=== PATIENT | female | born 1955 | race Caucasian/White ===

== ENCOUNTER 2021-03-05 10:13 | Inpatient (IN) | payer BC ==
[2021-03-05] MEDS ORDERED: 50% Dextrose in Water 50 ML Syringe IVPUSH PRN (14:01)
[2021-03-05] MEDS ORDERED: Glucagon,Human Recombinant 1 MG Vial IM PRN (14:01)
[2021-03-05] MEDS ORDERED: oxyCODONE 5 MG Tab PO PRN (14:01)
--- NOTE | 2021-03-05 14:11 | PCM.HP.2 ---
H&P History of Present Illness - General Date of Service: 03/05/21 Admit Problem/Dx: Admission Diagnosis/Problem Admission Diagnosis/Problem Rehabilitation therapy Source of Information: Patient, Old Records, Provider - History of Present Illness Initial Comments - Free Text/Narative: Akilah underwent Laminectomy on Mar 01, she is POD #4 today. Her hemoglobin was 9.3, had minimal blood loss. Electrolytes were normal per Neurosurgery. She was started on Gabapentin 100 mg tid on 03/01 but has not really helped with pain. She does not want to get hooked on narcotics or Gabapentin so prefers not to be on these for care home. She rates pain as 2/10, prior to surgery was 7-8/10. She denies any fevers, chills, shortness of breath, nausea, vomiting or abdominal pain. She has been voiding and had urinary catheter for 24 hours after surgery then was pulled. She has been passing gas but has not had BM since 02/26. She states gets UTI sometimes but denies any dysuria, frequency or hematuria currently. Neurosurgery pulled drain this morning and had minimal output from it, her surgical site was closed by Dermabond and drain site left open to close by secondary intention. We are to notify them if she has persistent large amounts of drainage from drain site. She is due to see Neurosurgery in 6 weeks. Her restrictions are: no bending, twisting and lifting more than 15 lbs. She does not require any specific DVT prophylaxis per neurosurgery. She eats a regular diet at home and is on Lantus 30 units bid and Metformin bid, checks her sugars tid. - Related Data Allergies/Adverse Reactions: Allergies Allergy/AdvReac Type Severity Reaction Status Date / Time atorvastatin [From Lipitor] Allergy Unknown Rash Verified 03/05/21 14:10 semaglutide AdvReac Unknown Blurred Verified 03/05/21 14:10 Vision Sulfa (Sulfonamide AdvReac Unknown Nausea Verified 03/05/21 14:10 Antibiotics) Home Medications: Home Meds Acetaminophen [Tylenol] 650 mg PO Q6H 03/05/21 [History] Cholecalciferol (Vitamin D3) [Vitamin D3] 25 mcg PO DAILY 03/05/21 [History] Citalopram Hydrobromide [Celexa] 40 mg PO DAILY 03/05/21 [History] Cyanocobalamin (Vitamin B-12) [Vitamin B-12] 1,000 mcg PO DAILY 03/05/21 [History] Docusate Sodium 100 mg PO BID 03/05/21 [History] Gabapentin [Neurontin] 100 mg PO TID 03/05/21 [History] Insulin Glarg,Human.Rec.Analog [Lantus Solostar] 30 units SUBCUT BID 03/05/21 [History] Losartan [Cozaar] 25 mg PO DAILY 03/05/21 [History] Rosuvastatin [Crestor] 10 mg PO BEDTIME 03/05/21 [History] metFORMIN HCl [Metformin HCl] 1,000 mg PO BIDMEALS 03/05/21 [History] oxyCODONE 5 mg PO Q4H PRN 03/05/21 [History] oxyCODONE 10 mg PO Q4H PRN 03/05/21 [History] polyethylene glycoL 3350 [MiraLAX] 17 gm PO DAILY 03/05/21 [History] H&P Review of Systems - Review of Systems: Review Of Systems: Comprehensive ROS is negative, except as noted in HPI. Exam - Exam Exam: See Below - Exam General: Alert, Oriented, Cooperative HEENT: PERRLA, EOMI, Hearing Intact, Mucosa Moist & [place] Lungs: Clear to Auscultation, Normal Respiratory Effort Cardiovascular: Regular Rate, Regular Rhythm GI/Abdominal Exam: Normal Bowel Sounds, Soft, Non-Tender, No Distention Extremities: No Pedal Edema, Normal Capillary Refill Peripheral Pulses: 2+: Radial (L), Radial (R) Neurological: Cranial Nerves Intact, Normal Speech, Sensation Intact *Q Meaningful Use (ADM) - VTE *Q VTE Mechanical Contraindications *Q: At Risk for Falls - VTE Risk Assess *Q Each Risk Factor Represents 1 Point: None Total Score 1 Point Risk Factors: 0 Each Risk Factor Represents 2 Points: Age 60 - 74 Years, Major surgery greater than 45 minutes Total Score 2 Point Risk Factors: 4 Each Risk Factor Represents 3 Points: None Total Score 3 Point Risk Factors: 0 Each Risk Factor Represents 5 Points: None Total Score 5 Point Risk Factors: 0 Venous Thromboembolism Risk Factor Score *Q: 4 - Problem List (1) S/P laminectomy SNOMED Code(s): 115533184, 178837984, 968889990 ICD Code: Z98.890 - OTHER SPECIFIED POSTPROCEDURAL STATES Status: Acute Current Visit: Yes Onset Date: ~03/01/21 (2) Diabetes SNOMED Code(s): 72579823 ICD Code: E11.9 - TYPE 2 DIABETES MELLITUS WITHOUT COMPLICATIONS Status: Chronic Current Visit: Yes (3) Hypertension SNOMED Code(s): 89346973 ICD Code: I10 - ESSENTIAL (PRIMARY) HYPERTENSION Status: Chronic Current Visit: Yes (4) Hypercholesteremia SNOMED Code(s): 22494502 ICD Code: E78.00 - PURE HYPERCHOLESTEROLEMIA, UNSPECIFIED Status: Chronic Current Visit: Yes Problem List Initiated/Reviewed/Updated: Yes Orders Last 24hrs: Active Orders 24 hr Category Date Time Status Patient Status [ADT] Routine ADT 03/05/21 13:58 Ordered Blood Glucose Check, Bedside [RC] QIDACANDBED Care 03/05/21 13:59 Ordered Height and Weight [RC] WEEKLY Care 03/05/21 13:58 Ordered Oxygen Therapy [RC] PRN Care 03/05/21 13:58 Ordered Up With Assistance [RC] ASDIRECTED Care 03/05/21 13:57 Ordered Up to Chair [RC] ASDIRECTED Care 03/05/21 13:57 Ordered VTE/DVT Education [RC] Per Unit Routine Care 03/05/21 13:58 Ordered Vital Signs [RC] PER UNIT ROUTINE Care 03/05/21 13:58 Ordered OT Evaluation and Treatment [CONS] Routine Cons 03/05/21 13:59 Ordered PT Evaluation and Treatment [CONS] Routine Cons 03/05/21 13:59 Ordered Regular Diet [DIET] Diet 03/05/21 Lunch Ordered Acetaminophen [TylenoL] Med 03/05/21 14:15 Ordered 650 mg PO Q6H Aspirin Med 03/05/21 14:15 Ordered 81 mg PO DAILY Cholecalciferol (Vitamin D3) [Vitamin D3] Med 03/06/21 09:00 Ordered 25 mcg PO DAILY Citalopram Hydrobromide [Celexa] Med 03/06/21 09:00 Ordered 40 mg PO DAILY Cyanocobalamin (Vitamin B12) [Vitamin B12] Med 03/06/21 09:00 Ordered 1,000 mcg PO DAILY Dextrose 50% in Water Med 03/05/21 14:01 Ordered 50 ml IVPUSH ASDIRECTED PRN Docusate Sodium [Colace] Med 03/05/21 21:00 Ordered 100 mg PO BID Glucagon,Human Recombinant [GlucaGen] Med 03/05/21 14:01 Ordered 1 mg IM ASDIRECTED PRN Ibuprofen [Motrin] Med 03/05/21 14:15 Ordered 200 mg PO Q6H Insulin Glarg,Human.Rec.Analog [LantUS Solostar] Med 03/05/21 21:00 Ordered 30 units SUBCUT BID Losartan [Cozaar] Med 03/06/21 09:00 Ordered 25 mg PO DAILY Rosuvastatin [Crestor] Med 03/05/21 21:00 Ordered 10 mg PO BEDTIME metFORMIN [Glucophage] Med 03/05/21 18:00 Ordered 1,000 mg PO BIDMEALS oxyCODONE Med 03/05/21 14:01 Ordered 5 mg PO Q4H PRN polyethylene glycoL 3350 [MiraLAX] Med 03/06/21 09:00 Ordered 17 gm PO DAILY Antiembolic Hose [OM.PC] Per Unit Routine Oth 03/05/21 13:59 Ordered Resuscitation Status Routine Resus Stat 03/05/21 13:57 Ordered Medication Orders Acetaminophen (Acetaminophen 325 Mg Tab) 650 mg PO Q6H [facility] Aspirin (Aspirin 81 Mg Tab.Chew) 81 mg PO DAILY [facility] Cholecalciferol (Cholecalciferol (Vitamin D3) 25 Mcg Tab) 25 mcg PO DAILY [facility] Cyanocobalamin (Cyanocobalamin (Vitamin B12) 1,000 Mcg Tab) 1,000 mcg PO DAILY [facility] Dextrose/Water (50% Dextrose In Water 50 Ml Syringe) 50 ml IVPUSH ASDIRECTED PRN PRN Reason: Hypoglycemia Docusate Sodium (Docusate Sodium 100 Mg Cap) 100 mg PO BID [facility] Glucagon (Glucagon,Human Recombinant 1 Mg Vial) 1 mg IM ASDIRECTED PRN PRN Reason: Hypoglycemia Ibuprofen (Ibuprofen 200 Mg Tab) 200 mg PO Q6H [facility] Insulin Glargine (Insulin Glargine,Human Rec. Analog 100 Units/Ml 3 Ml Pen) 30 units SUBCUT BID [facility] Losartan Potassium (Losartan 25 Mg Tab) 25 mg PO DAILY [facility] Metformin HCl (Metformin 1,000 Mg Tab) 1,000 mg PO BIDMEALS [facility] Non-Formulary Medication (Citalopram Hydrobromide [Celexa]) 40 mg PO DAILY [facility] Oxycodone HCl (Oxycodone 5 Mg Tab) 5 mg PO Q4H PRN PRN Reason: moderate pain Polyethylene Glycol (Polyethylene Glycol 3350 Powder 17 Gm Packet) 17 gm PO DAILY [facility] Rosuvastatin Calcium (Rosuvastatin 10 Mg Tab) 10 mg PO BEDTIME [facility] Assessment/Plan Comment:: 1. Admit to swing bed for rehab services s/p laminectomy POD#4(03/01). 2. S/p laminectomy: No bending, twisting, or lifting more than 15 lbs. Dressing to drain site, change as needed. Tylenol 650 mg po q6h and Ibuprofen 200 mg q6h scheduled. Oxycodone 5 mg q4h as needed breakthrough pain. Will not continue Gabapentin as patient does not want to take this medication. She was on schedule Zanaflex tid in [place], will change to as needed and adjust as necessary. PT/OT evaluate & treat. 3. DM: Lantus 30 units bid with Metformin 1000 mg bid. Glucose checks qidac&hs. 4. Regular diet with room service. 5. Up to chair & with assistance. Advance per therapy. 6. DVT prophylaxis: Ambulate with therapy. Aspirin 81 mg daily and TEDS hose BLE. 7. CODE STATUS: DNR/DNI, has advance directive, her will bring in copy for our records. 8. Discharge planning: once meets therapy goals, plan to discharge home with her . - Mortality Measure Prognosis:: Good
[2021-03-05] MEDS: Aspirin 81 MG Tab.Chew PO SCH (16:55)
[2021-03-05] MEDS: Acetaminophen 325 MG Tab PO SCH ×2 (16:55→21:03)
[2021-03-05] MEDS: Ibuprofen 200 MG Tab PO SCH ×2 (16:55→21:04)
[2021-03-05] MEDS: metFORMIN 1,000 MG Tab PO SCH (21:02)
[2021-03-05] MEDS: Rosuvastatin 10 MG Tab PO SCH (21:03)
[2021-03-05] MEDS: Docusate Sodium 100 MG Cap PO SCH (21:03)
[2021-03-05] MEDS ORDERED: Insulin Glargine,Human Rec. Analog 100 Units/ML 3 ML Pen SUBCUT ONE (21:12)
[2021-03-05] MEDS: Insulin Glargine,Human Rec. Analog 100 Units/ML 3 ML Pen SUBCUT SCH (21:15)
[2021-03-06] MEDS: Acetaminophen 325 MG Tab PO SCH ×4 (02:03→20:47)
[2021-03-06] MEDS: Ibuprofen 200 MG Tab PO SCH ×4 (02:03→20:50)
[2021-03-06] MEDS ORDERED: Polyethylene Glycol 3350 Powder 17 GM Packet PO SCH (09:00)
[2021-03-06] MEDS: metFORMIN 1,000 MG Tab PO SCH ×2 (09:05→17:53)
[2021-03-06] MEDS: Docusate Sodium 100 MG Cap PO SCH (09:08)
[2021-03-06] MEDS: Losartan 25 MG Tab PO SCH (09:08)
[2021-03-06] MEDS: Citalopram 20 MG Tab PO SCH (09:08)
[2021-03-06] MEDS: Aspirin 81 MG Tab.Chew PO SCH (09:08)
[2021-03-06] MEDS: Insulin Glargine,Human Rec. Analog 100 Units/ML 3 ML Pen SUBCUT SCH ×2 (09:09→20:43)
[2021-03-06] MEDS: Cyanocobalamin (Vitamin B12) 1,000 MCG Tab PO SCH (09:10)
[2021-03-06] MEDS: Cholecalciferol (Vitamin D3) 25 MCG Tab PO SCH (09:10)
[2021-03-06] MEDS: tiZANidine 4 MG Tab PO PRN (17:54)
[2021-03-06] MEDS ORDERED: Polyethylene Glycol 3350 Powder 17 GM Packet PO PRN (18:22)
[2021-03-06] MEDS ORDERED: Docusate Sodium 100 MG Cap PO PRN (18:22)
[2021-03-06] MEDS: Rosuvastatin 10 MG Tab PO SCH (20:52)
[2021-03-07] MEDS: Acetaminophen 325 MG Tab PO SCH ×4 (02:35→21:02)
[2021-03-07] MEDS: Ibuprofen 200 MG Tab PO SCH ×4 (02:35→21:00)
[2021-03-07] MEDS: Cyanocobalamin (Vitamin B12) 1,000 MCG Tab PO SCH (08:21)
[2021-03-07] MEDS: Citalopram 20 MG Tab PO SCH (08:21)
[2021-03-07] MEDS: Cholecalciferol (Vitamin D3) 25 MCG Tab PO SCH (08:21)
[2021-03-07] MEDS: Insulin Glargine,Human Rec. Analog 100 Units/ML 3 ML Pen SUBCUT SCH ×2 (08:21→21:04)
[2021-03-07] MEDS: Aspirin 81 MG Tab.Chew PO SCH (08:21)
[2021-03-07] MEDS: metFORMIN 1,000 MG Tab PO SCH ×2 (08:21→17:20)
[2021-03-07] MEDS: Losartan 25 MG Tab PO SCH (08:22)
[2021-03-07] MEDS: Rosuvastatin 10 MG Tab PO SCH (20:59)
[2021-03-08] MEDS: Ibuprofen 200 MG Tab PO SCH ×4 (02:39→20:00)
[2021-03-08] MEDS: Acetaminophen 325 MG Tab PO SCH ×5 (02:41→20:01)
[2021-03-08] MEDS: metFORMIN 1,000 MG Tab PO SCH ×2 (08:10→17:52)
[2021-03-08] MEDS: Aspirin 81 MG Tab.Chew PO SCH (08:12)
[2021-03-08] MEDS: Losartan 25 MG Tab PO SCH (08:13)
[2021-03-08] MEDS: Citalopram 20 MG Tab PO SCH (08:13)
[2021-03-08] MEDS: Cholecalciferol (Vitamin D3) 25 MCG Tab PO SCH (08:17)
[2021-03-08] MEDS: Cyanocobalamin (Vitamin B12) 1,000 MCG Tab PO SCH (08:17)
[2021-03-08] MEDS: Insulin Glargine,Human Rec. Analog 100 Units/ML 3 ML Pen SUBCUT SCH ×2 (08:24→20:03)
--- OUTSIDE RECORDS SUMMARY | 2021-03-08 13:14 | XMSREPORT ---
:1955 Author Organization [facility] s Address [facility] [address] [place] [address] Care Team Providers Name Role Phone Manolo Connelly MD Primary Care Provider Manolo Connelly MD Attributed Provider Reason for Referral Transitions of Care (Routine) Status Reason Specialty Diagnoses / Referred By Referred To Procedures Contact Contact Pending Review Service Not Diagnoses Spinal stenosis Dina Shaw, [facility] Available at MD Hernandez [address] [place] [id number] Phone: GAVINO REDDY [phone] [place], [place]: [phone] Reason for Visit Auth/Cert (Routine) Status Reason Specialty Diagnoses / Referred By Referred To Procedures Contact Contact Continuity of Care Diagnoses Radiculopathy, lumbar region Intervertebral disc disorders with radiculopathy, lumbosacral region Spinal stenosis, lumbar region with neurogenic claudication Yue, Procedures LAMINECTOMY FACETECTOMY & FORAMINOTOMY 1 SEG LUMBAR LAMINECTOMY FACETECTOMY&FORAMINOTOMY ADDL SEG CERVICAL THORACIC LUMBAR Easton Zhou MD [address] [place] [id number] Encounter Details Date Type Department Care Team Description 03/01/2021 - Hospital Encounter [facility] Easton Turner maxi stenosis 03/05/2021 CENTER 6AB NEURO [place], [facility] [address] [facility] [address] [place] [address] [place] [address] [phone] Allergies Active Allergy Reactions Severity Noted Date Comments Atorvastatin Rash Medium 11/10/2014 Semaglutide Nausea and Vomiting, Blurred Vision 08/30 Ozempic Sulfa Drugs Nausea 01/26/2012 documented as of this encounter (statuses as of 03/05/2021) Medications Medication Sig Dispensed Refills Start End Status Date Date Contour NEXT test 4 times a day and 400 each 4 05/29/20 Active strip as needed for 19 other (Specify) (blood glucose reading) Microlet lancets 4 times a day and 4 box 4 05/29/20 Active as needed (blood 19 glucose reading) vitamin D3, Take 1 tablet by 0 A ctive cholecalciferol, mouth 1 time per 25 mcg (1000 unit) day tablet cyanocobalamin Take 1,000 mcg by 0 Active (VITAMIN B-12) mouth 1 time per 1000 mcg tablet day insulin needle Use as directed 200 each 3 05/28/20 Active (B-D UF III MINI with lantus twice 20 PEN NEEDLES) 31G X a day 5 mm (10/06") MiniIndications: Type 2 diabetes mellitus with microalbuminuria, with long-term current use of insulin ([facility]) losartan 25 mg Take 1 tablet (25 90 tablet 3 05/28/20 Active tabletIndications: mg) by mouth 1 20 021 Persistent time per day proteinuria rosuvastatin TAKE 1 TABLET 90 tablet 3 05/28/20 Act kristen (CRESTOR) 10 mg (10MG TOTAL) BY 20 tabletIndications: MOUTH 1 TIME PER Mixed DAY GENERIC FOR hyperlipidemia CRESTOR citalopram Take 1 tablet (40 90 tablet 4 08/18/19 A ctive (CELEXA) 40 mg mg) by mouth 1 21 tabletIndications: time per day Generalized anxiety disorder metFORMIN TAKE 1 TABLET 180 tablet 3 10/14/19 Activ e (GLUCOPHAGE) 1000 (1,000 MG) BY 21 MG MOUTH 2 TIMES A tabletIndications: DAY WITH MEALS Type 2 diabetes GENERIC GLUCOPHAGE mellitus with microalbuminuria, with long-term current use of insulin ([facility]) insulin glargine Inject 30 Units 60 mL 3 01/06/20 Active (LANTUS SOLOSTARE) subcutaneously 2 022 subcutaneous times a day injection solution (pen)Indications: Type 2 diabetes mellitus with microalbuminuria, with long-term current use of insulin (HCC) acetaminophen Take 2 tablets 0 03/05/20 A ctive (TYLENOL) 325 mg (650 mg) by mouth 21 tabletIndications: Every 6 hours Lumbar radiculopathy oxyCODONE (OXY-IR) Take 1-2 tablets 12 tablet 0 03/05/2002/21 Active 5 mg tablet (5-10 mg) by mouth 21 021 (immediate Every 4 hours as release)Indication needed for s: Lumbar moderate pain or radiculopathy severe pain for up to 3 days gabapentin Take 1 capsule 90 capsule 2 03/05/20 Act kristen (NEURONTIN) 100 mg (100 mg) by mouth 21 021 capsuleIndications 3 times a day : Lumbar radiculopathy docusate sodium Take 1 capsule 0 03/05/20 Active (COLACE) 100 MG (100 mg) by mouth 21 capsuleIndications 2 times a day : Constipation due to opioid therapy polyethylene Take 1 packet by 0 03/06/20 Active glycol (MIRALAX) mouth 1 time per 21 17 g day Dissolve in 4 packetIndications: to 8 ounces of Constipation due water, juice, to opioid therapy soda, coffee, tea. ibuprofen Take 200-600 mg by 0 D iscontinued (ADVIL;MOTRIN-IB) mouth Every 4 021 (Stop Taking at 200 mg tablet hours as needed Discharge) documented as of this encounter (statuses as of 03/05/2021) Active Problems Problem Noted Date Spinal stenosis 03/01/2021 Hyperopia of both eyes 02/22/2021 Hospital discharge follow-up 03/18/2020 Cervical radiculopathy 03/18/2020 Lumbar radiculopathy 03/18/2020 Vitreous floaters of both eyes 03/17/2020 Adjustment disorder with depressed mood 02/05/2020 Diabetic macular edema of both eyes 06/04/2019 Epiretinal membrane (ERM) of right eye 06/04/2019 Amyloidosis 05/29/2019 Anemia, iron deficiency 03/21/2019 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) 07/19/2017 S/P arthroscopy of shoulder 06/07/2017 Post-traumatic osteoarthritis, left shoulder 7 Persistent depressive disorder with anxious distress, currently moderate 03/08/2017 Astigmatism 06/13/2016 Presbyopia 06/13/2016 Type 2 diabetes mellitus with microalbuminuria, with l imelda-term current use 05/04/2015 of insulin Screening for eye condition 11/18/2014 Generalized anxiety disorder 08/11/2011 Lumbago 08/11/2011 Essential hypertension 08/11/2011 Mixed hyperlipidemia 08/11/2011 Obesity, Class I, BMI 30.0-34.9 (see actual BMI) documented as of this encounter (statuses as of 03/05/2021) Resolved Problems Problem Noted Date Resolved Date Nuclear sclerotic cataract of both eyes 09/24/2019 08/05/2020 Nuclear senile cataract of both eyes 06/04/2019 Closed fracture of left proximal humerus 07/12/2016 05/16/2017 Overview: Surgical neck and greater tuberosity Pre-op evaluation 07/12/2016 05/16/2017 Cataract 06/13/2016 08/05/2020 Myopia 06/13/2016 02/22/2021 Dysuria 10/30/2013 06/04/2014 Pneumonia 09/16/2013 06/04/2014 documented as of this encounter (statuses as of 03/05/2021) Immunizations Name Administration Dates Next Due FLU VACCINE TRIVALENT 05/08/2013 MULTIDOSE(Fluvirin,Afluria) FLU VACCINE MULTIDOSE 04/24/2014 0.5mL(6MO+Fluzone/Flulaval,Afluria) H1N1 Vaccine 08/05/2009 INFLUENZA MULTIDOSE 0.5ML 6 MONTHS AND 05/13/2015 UP INFLUENZA SINGLE DOSE 0.5ML 6 MONTHS 04/02/2020, 05/23/2018, 05/03/2017, AND UP 05/17/2016 Influenza Vaccine,unspecified 04/18/2019, 05/03/2017, 2015, 05/13/2015, 04/24/2014, 05/08/2013, 05/17/2012, 04/17/2010, 05/22/2008, 05/09/2006 Moderna COVID-19 Vaccine 10/16/2020, 09/17/2020 Pneumococcal Conj PCV13 03/08/2017 Pneumococcal Polysaccharide PPSV23 04/18/2019, 09/15/2013 TD(adult)adsorbed 10/15/1996 TDAP 05/22/2008 Td(adult)preservative free 12/11/2018, 10/15/1996 Zoster Live(Zostavax) 03/08/2017 Zoster Recombinant (Shingrix) 04/13/2018, 01/03/2018 documented as of this encounter Social History Tobacco Use Types Packs/Day Years Used Date Never Smoker Smokeless Tobacco: Never Used Comments: None Alcohol Use Standard Drinks/Week Comments No 0 (1 standard drink = 0.6 oz pure alcoho l) very rare Alcohol Habits Answer Date Recorded How often do you have a drink containing alcohol? Never 03/03/2021 How many drinks containing alcohol do you have on a typical Not asked day when you are drinking? How often do you have six or more drinks on one occasion? No t asked Comment: Not asked Sexually Active Control Partners Comments Not Currently Post-menopausal Male Sex Assigned at Date Recorded Female 08/28/2019 10:10 AM [employer] documented as of this encounter Last Filed Vital Signs Vital Sign Reading Time Taken Comments Blood Pressure 154/63 03/05/2021 7:13 AM CDT Pulse 86 03/05/2021 7:13 AM CDT Temperature 37.5 C (99.5 F) 03/05/2021 7:13 AM CDT Respiratory Rate 18 03/05/2021 7:13 AM CDT Oxygen Saturation 99% 03/05/2021 9:23 AM CDT Inhaled Oxygen Concentration - - Weight 85.5 kg (188 lb 8 oz) 03/01/2021 5:41 AM CDT Height 160 cm (5' 3") 03/01/2021 5:41 AM CDT Body Mass Index 33.39 03/01/2021 5:41 AM CDT documented in this encounter Functional Status Functional Status Response Date of Assessment Is the person deaf or does he/she have serious difficulty No 03/11/2020 hearing? Is this person blind or does he/she have difficulty No 03/11/2020 seeing even when wearing glasses? Do you have difficulty with walking, balance, climbing Yes 03/02/2021 stairs, or had a fall in the last 3 months? Does the patient have difficulty dressing or bathing? Yes 03/11/2020 Because of a physical, mental, or emotional condition; No 03/11/2020 does this person have difficulty doing errands alone such as visiting a doctor's office or shopping? Cognitive Status Response Date of Assessment Because of a physical, mental, or emotional condition; No 03/11/2020 does this person have serious difficulty concentrating, remembering, or making decisions? documented as of this encounter Discharge Summaries Not on filedocumented in this encounter Medications at Time of Discharge Medication Sig Dispensed Refills Start Date End Date acetaminophen Take 2 tablets (650 0 03/05/2021 (TYLENOL) 325 mg mg) by mouth Every 6 tabletIndications: hours Lumbar radiculopathy oxyCODONE (OXY-IR) 5 Take 1-2 tablets (5-10 12 tablet 0 03/08/2021 mg tablet (immediate mg) by mouth Every 4 release)Indications: hours as needed for Lumbar radiculopathy moderate pain or severe pain for up to 3 days gabapentin (NEURONTIN) Take 1 capsule (100 90 capsule 2 02/2106/03/2021 100 mg mg) by mouth 3 times a capsuleIndications: day Lumbar radiculopathy docusate sodium Take 1 capsule (100 0 03/05/2021 (COLACE) 100 MG mg) by mouth 2 times a capsuleIndications: day Constipation due to opioid therapy polyethylene glycol Take 1 packet by mouth 0 02/21 (MIRALAX) 17 g 1 time per day packetIndications: Dissolve in 4 to 8 Constipation due to ounces of water, opioid therapy juice, soda, coffee, tea. insulin glargine Inject 30 Units 60 mL 3 01/05/2021 (LANTUS SOLOSTARE) subcutaneously 2 times subcutaneous injection a day solution (pen)Indications: Type 2 diabetes mellitus with microalbuminuria, with long-term current use of insulin (HCC) metFORMIN (GLUCOPHAGE) TAKE 1 TABLET (1,000 180 tablet 3 1000 MG MG) BY MOUTH 2 TIMES A tabletIndications: DAY WITH MEALS GENERIC Type 2 diabetes GLUCOPHAGE mellitus with microalbuminuria, with long-term current use of insulin (HCC) citalopram (CELEXA) 40 Take 1 tablet (40 mg) 90 tablet 4 mg tabletIndications: by mouth 1 time per Generalized anxiety day disorder insulin needle (B-D UF Use as directed with 200 each 3 11/2019 III MINI PEN NEEDLES) lantus twice a day 31G X 5 mm (3") MiniIndications: Type 2 diabetes mellitus with microalbuminuria, with long-term current use of insulin (HCC) losartan 25 mg Take 1 tablet (25 mg) 90 tablet 3 05/28/2020 05/28/2021 tabletIndications: by mouth 1 time per Persistent proteinuria day rosuvastatin (CRESTOR) TAKE 1 TABLET (10MG 90 tablet 3 11/2019 10 mg TOTAL) BY MOUTH 1 TIME tabletIndications: PER DAY GENERIC FOR Mixed hyperlipidemia CRESTOR vitamin D3, Take 1 tablet by mouth 0 cholecalciferol, 25 1 time per day mcg (1000 unit) tablet cyanocobalamin Take 1,000 mcg by 0 (VITAMIN B-12) 1000 mouth 1 time per day mcg tablet Contour NEXT test 4 times a day and as 400 each 4 05/29/20 19 strip needed for other (Specify) (blood glucose reading) Microlet lancets 4 times a day and as 4 box 4 9 needed (blood glucose reading) documented as of this encounter Progress Notes Dina Shaw MD - 03/04/2021 2:56 PM CDT Images from the original note were not included. DAILY PROGRESS NOTE Akilah Chávez is a 66yr old female admitted on 03/01/2021. SUBJECTIVE No new event overnight Light headed is improved Slept well NO sob No chest pain BP improved OBJECTIVE Current Vital Signs Temp: 98.1 F (36.7 C) BP: 87/53 Pulse: 78 O2 Device: Room Air O2 Flow Rate (L/min): 0.5 l/min Resp: 16 Pain Ratin (out of 10) Weight: 85.5 kg (188 lb 8 oz) SpO2: 92 % Review of Systems - Constitutional ROS: negative Respiratory ROS: no cough, shortness of breath, or wheezing Cardiovascular ROS: negative Gastrointestinal ROS: negative Musculoskeletal ROS: negative Neurological ROS: negative Vitals Min/Max Last 24 Hours Patient Vitals for the past 24 hrs: BP Temp Pulse Resp SpO2 03/04/21 1043 87/53 98.1 F (36.7 C) 78 16 92 % 03/04/21 0752 148/74 98.6 F (37 C) 85 16 96 % 03/04/21 0610 156/79 99.2 F (37.3 C) 85 12 93 % 03/04/21 0021 127/55 98.5 F (36.9 C) 82 15 03/03/21 1940 128/61 99.9 F (37.7 C) 88 16 93 % 03/03/21 1532 97/62 98.3 F (36.8 C) 76 18 99 % Intake and Out put last 24 hours 03/03 0700 - 03/04 0659 In: 1340 Out: 100 Physical Exam General Appearance: alert, well appearing, and in no distress Chest: clear to auscultation, no wheezes, rales or rhonchi, symmetric air entry Heart: normal rate, regular rhythm, normal S1, S2, no murmurs, rubs, clicks or gallops Abdomen: soft, nontender, nondistended, no masses or organomegaly Neurological: alert, oriented, normal speech, no focal findings or movement disorder noted Extremities: peripheral pulses normal, no pedal edema, no clubbing or cyanosis Skin: normal coloration and turgor, no rashes, no suspicious skin lesions noted Patient Lines/Drains/Airways Status Active Lines Name: Placement date: Placement time: Site: Days: Peripheral IV 03/01/21 Antecubital Left 03/01/21 0611 Antecubital 3 Peripheral IV 03/01/21 Hand Right 03/01/21 0755 Hand 3 Mack-Wood Drain 03/01/21 Lower;Left Back Drain #1 03/01/21 0933 Back 3 Incision 03/01/21 Lower;Mid Back Incision 03/01/21 0913 Back 3 Current Medications heparin (porcine) injection solution 5,000 Units 5,000 Units Subcutaneous Every 8 hours 5,000 Units at 03/04/21 1310 gabapentin (NEURONTIN) capsule 100 mg 100 mg Oral 3 times a day 100 mg at 03/04/21 1443 sodium chloride 0.9% flush (adult) 10 mL 10 mL IV 2 times a day and prn 10 mL at 03/04/21 0830 sodium chloride 0.9% flush (adult) 10 mL 10 mL IV 2 times a day and prn 10 mL at 03/04/21828 oxyCODONE (OXY-IR) tablet 5-10 mg 5-10 mg Oral Every 4 hours prn 5 mg at 03/03/212228 fentaNYL 100 mcg/2 mL preservative free injection solution 50 mcg 50 mcg IV Every 1 hour prn nalOXone (NARCAN) injection solution (vial) 0.4 mg 0.4 mg Injection Every 2 minutes prn nalOXone (NARCAN) injection solution (vial) 0.2 mg 0.2 mg Injection Every 2 minutes prn senna-docusate sodium (SENOKOT-S;PERICOLACE) tablet 1 tablet 1 tablet Oral 2 times a day 1 tablet at 03/04/21825 docusate sodium (COLACE) capsule 100 mg 100 mg Oral 2 times a day 100 mg at 03/04/21827 polyethylene glycol (MIRALAX) packet 1 packet 1 packet Oral Daily 1 packet at 03/04/21823 lactulose oral solution (10 gm/15 mL) 30 mL 30 mL Oral Daily 30 mL at 03/04/21825 bisacodyl (DULCOLAX) suppository 10 mg 10 mg Rectal Daily ondansetron (ZOFRAN) injection solution 4 mg 4 mg IV Every 4 hours prn acetaminophen (TYLENOL) tablet 650 mg 650 mg Oral Every 6 hours 650 mg at 03/04/21 1309 tiZANidine (ZANAFLEX) tablet 2 mg 2 mg Oral 3 times a day 2 mg at 03/04/21 1443 ceFAZolin (ANCEF) 2000 mg/20 mL sterile water IV syringe 2,000 mg IV Every 8 hours 2,000 mg at 03/04/21828 citalopram (celeXA) tablet 40 mg 40 mg Oral daily 40 mg at 03/04/21826 cyanocobalamin (VITAMIN B-12 DOTS) sublingual tablet 1,000 mcg 1,000 mcg Oral daily 1,000 mcg at 03/04/21826 insulin glargine (LANTUS) SQ injection 15 Units Subcutaneous 2 times a day 15 Units at rosuvastatin (CRESTOR) tablet 10 mg 10 mg Oral at bedtime 10 mg at 03/03/212228 vitamin D3 (cholecalciferol) tablet 25 mcg 25 mcg Oral daily 25 mcg at 03/04/21 0826 dextrose 50% IV solution 50 mL 25 g IV PRN per parameter glucagon for injection 1 mg vial 1 mg 1 mg Intramuscular PRN per parameter glucose chewable tablet 16 g 4 tablet Oral PRN per parameter Or carbohydrate 15 g 15 g Oral PRN per parameter insulin aspart (NovoLOG) SQ correction scale (Adult) 2-8 Units Subcutaneous 3 times a day 7 Units at 03/04/21 1308 Diagnostics and Labs Labs (Last day) 03/04/21 1110 - 03/03/21 1636 GLUCOSE POINT OF CARE 03/04/21 1110 03/04/21 0457 03/03/21 2049 03/03/21 1636 GLUCOSE POINT OF CARE Glucose POC 70-99 (mg/dL) 328 193 193 278 I ASSESSMENT & PLAN 1. Status post L3-L5 laminectomy. Management per neurosurgery. Pain management per them. She is on appropriate pain medications. Continuous oximetry. 2. Postop wound care per neurosurgery. 3. She is on gabapentin and Zanaflex per neurosurgery. Monitor on continuous oximetry and telemetry for at least 24 hours until she gets used to these medications. 4. Nausea, on scopolamine patch. 5. Dyslipidemia, resume Crestor, 6. Constipation prevention, Senokot and MiraLax. 7. Hypertension. Hold losartan due to low BP . 8. Diabetes. She takes 30 units of Lantus b.i.d., iwill change to 20 BID . Also, sliding scaleinsulin. BS noted. 9. Depression, on Celexa. 10; ETHEL due to hypovolemia , Resolved , continue to hold losartan may resume at discharge. , Heparin SQ for DVT prophylaxis Plan of care explained. Kimmie Barrios CNP - 03/04/2021 9:40 AM CDT Neurosurgery Daily Progress Note Akilah Chávez is a 66 y/o female admitted on 03/01/21 after undergoing L3-[address] Turner. There were no intraoperative complications. S: Alert, resting in bed, reports that she slept well overnight and is feeling good this morning. Reports that pain remains across low-back, rated as 2/10. Denies any numbness, tingling, or pain in lower extremities. Nausea continues to be improved, is tolerating fluids okay. + passing gas. No BM yet, but feels likeshe might be able to have one today. No abdominal distention. Apparently had some urinary retention and required strait catheterization, but has voided okay sincethen. O: BP 148/74 Pulse 85 Temp 98.6 F (37 C) Resp 16 Ht 1.6 m (5' 3") Wt 85.5 kg (188 lb 8 oz) SpO2 96% BMI 33.39 kg/m2|| Neurologic Exam: Psych/Mental Status: Level of Alertness: Awake, Alert Orientation: Oriented to conversation Memory: Intact in regular conversation Speech/Language: Spontaneous speech, clear, fluent, and appropriate Fund of Knowledge: Vocabulary and knowledge intact in regular conversation Attention/Concentration: Normal Comprehension: Intact Motor: Moves BUE with no obvious deficits. RLE: Iliopsoas 5/5, quadricep 5/5, hamstring 5/5, tibialis anterior 5/5, gastrocnemius 5/5, dorsiflexion / plantar flexion 5/5, EHL 5/5 LLE: Iliopsoas 4/5, quadricep 4/5, hamstring 4/5, tibialis anterior 5/5, gastrocnemius 5/5, dorsiflexion / plantar flexion 4/5, EHL 5/5 Sensory: Sensation: Intact to light touch Gait: Not tested Wound: Clean, dry, and intact Drain: patent, intact, 40 cc output overnight, 100 cc last 24 hours Labs: Hgb 03/02/21: 9.3 A: 3 Days Post-Op L3-L5 POSTERIOR LAMINECTOMY, DISCECTOMY & FORAMINOTOMY W/ MEDIAL FACETECTOMY Hx of HTN Hx of hyperlipidemia Hx of THU Hx of DMII with insulin Hx amyloidosis Hx WILLIE P: Continue drain today, continue abx Diet as tolerated Activity as tolerated IM for medical co-management PT/OT following, appreciate recs SCDs for DVT prophylaxis; Heparin SubQ Tentative plan for discharge tomorrow pending drain output, medical stability. This patient was discussed with Dr. Turner who agrees with assessment and plan. Dina Shaw MD - 03/03/2021 3:28 PM CDT Images from the original note were not included. DAILY PROGRESS NOTE Akilah Chávez is a 66yr old female admitted on 03/01/2021. SUBJECTIVE No new event overnight Light headed is improved Slept well NO sob No chest pain BP on the lower side OBJECTIVE Current Vital Signs Temp: 97.7 F (36.5 C) BP: 117/57 Pulse: 84 O2 Device: NC - no humidity O2 Flow Rate (L/min): 0.5 l/min Resp: 19 Pain Ratin (out of 10) Weight: 85.5 kg (188 lb 8 oz) SpO2: 95 % Review of Systems - Constitutional ROS: negative Respiratory ROS: no cough, shortness of breath, or wheezing Cardiovascular ROS: negative Gastrointestinal ROS: negative Musculoskeletal ROS: negative Neurological ROS: negative Vitals Min/Max Last 24 Hours Patient Vitals for the past 24 hrs: BP Temp Pulse Resp SpO2 03/03/21 1440 117/57 97.7 F (36.5 C) 84 19 95 % 03/03/21 1122 106/59 98.3 F (36.8 C) 80 12 93 % 03/03/21 0722 142/57 98.8 F (37.1 C) 88 12 94 % 03/03/21 0540 152/68 99.1 F (37.3 C) 88 12 94 % 03/02/21 1856 121/60 97 F (36.1 C) 91 19 94 % 03/02/21 1746 86 19 95 % Intake and Out put last 24 hours 03/02 0700 - 03/03 0659 In: 1340 Out: 1850 Physical Exam General Appearance: alert, well appearing, and in no distress Chest: clear to auscultation, no wheezes, rales or rhonchi, symmetric air entry Heart: normal rate, regular rhythm, normal S1, S2, no murmurs, rubs, clicks or gallops Abdomen: soft, nontender, nondistended, no masses or organomegaly Neurological: alert, oriented, normal speech, no focal findings or movement disorder noted Extremities: peripheral pulses normal, no pedal edema, no clubbing or cyanosis Skin: normal coloration and turgor, no rashes, no suspicious skin lesions noted Patient Lines/Drains/Airways Status Active Lines Name: Placement date: Placement time: Site: Days: Peripheral IV 03/01/21 Antecubital Left 03/01/21 0611 Antecubital 2 Peripheral IV 03/01/21 Hand Right 03/01/21 0755 Hand 2 Mack-Wood Drain 03/01/21 Lower;Left Back Drain #1 03/01/21 0933 Back 2 Incision 03/01/21 Lower;Mid Back Incision 03/01/21 0913 Back 2 Current Medications heparin (porcine) injection solution 5,000 Units 5,000 Units Subcutaneous Every 8 hours 5,000 Units at 03/03/21 1431 gabapentin (NEURONTIN) capsule 100 mg 100 mg Oral 3 times a day 100 mg at 03/03/21 1431 sodium chloride 0.9% flush (adult) 10 mL 10 mL IV 2 times a day and prn 10 mL at 03/03/21 0816 sodium chloride 0.9% flush (adult) 10 mL 10 mL IV 2 times a day and prn 10 mL at 03/03/21 0817 oxyCODONE (OXY-IR) tablet 5-10 mg 5-10 mg Oral Every 4 hours prn 5 mg at 03/03/21 0853 fentaNYL 100 mcg/2 mL preservative free injection solution 50 mcg 50 mcg IV Every 1 hour prn nalOXone (NARCAN) injection solution (vial) 0.4 mg 0.4 mg Injection Every 2 minutes prn nalOXone (NARCAN) injection solution (vial) 0.2 mg 0.2 mg Injection Every 2 minutes prn senna-docusate sodium (SENOKOT-S;PERICOLACE) tablet 1 tablet 1 tablet Oral 2 times a day 1 tablet at 03/03/21 0854 docusate sodium (COLACE) capsule 100 mg 100 mg Oral 2 times a day 100 mg at 03/03/21 0853 polyethylene glycol (MIRALAX) packet 1 packet 1 packet Oral Daily 1 packet at 03/03/21 0741 lactulose oral solution (10 gm/15 mL) 30 mL 30 mL Oral Daily 30 mL at 03/03/21 0743 [START ON 03/04/2021] bisacodyl (DULCOLAX) suppository 10 mg 10 mg Rectal Daily ondansetron (ZOFRAN) injection solution 4 mg 4 mg IV Every 4 hours prn acetaminophen (TYLENOL) tablet 650 mg 650 mg Oral Every 6 hours 650 mg at 03/03/21 1132 tiZANidine (ZANAFLEX) tablet 2 mg 2 mg Oral 3 times a day 2 mg at 03/03/21 1431 ceFAZolin (ANCEF) 2000 mg/20 mL sterile water IV syringe 2,000 mg IV Every 8 hours 2,000 mg at 03/03/21 0747 citalopram (celeXA) tablet 40 mg 40 mg Oral daily 40 mg at 03/03/21 0745 cyanocobalamin (VITAMIN B-12 DOTS) sublingual tablet 1,000 mcg 1,000 mcg Oral daily 1,000 mcg at 03/03/21743 insulin glargine (LANTUS) SQ injection 15 Units Subcutaneous 2 times a day 15 Units at rosuvastatin (CRESTOR) tablet 10 mg 10 mg Oral at bedtime 10 mg at 03/02/212130 vitamin D3 (cholecalciferol) tablet 25 mcg 25 mcg Oral daily 25 mcg at 03/03/21743 dextrose 50% IV solution 50 mL 25 g IV PRN per parameter glucagon for injection 1 mg vial 1 mg 1 mg Intramuscular PRN per parameter glucose chewable tablet 16 g 4 tablet Oral PRN per parameter Or carbohydrate 15 g 15 g Oral PRN per parameter insulin aspart (NovoLOG) SQ correction scale (Adult) 2-8 Units Subcutaneous 3 times a day 3 Units at 03/03/21 1132 Diagnostics and Labs Labs (Last day) 03/03/21 0651 - 03/03/21 0651 CHEMISTRY 03/03/21 0651 CHEMISTRY Glucose 70-100 (mg/dL) 188 Sodium 135-145 (meq/L) 137 Potassium 3.5-5.3 (meq/L) 4.7 Chloride 99-110 (meq/L) 101 CO2 20-29 (meq/L) 27 Anion Gap with K 6-20 (meq/L) 14 BUN 6-22 (mg/dL) 14 Creatinine 0.60-1.10 (mg/dL) 1.03 BUN/Creatinine Ratio 10.0-25.0 13.6 Calcium 8.5-10.5 (mg/dL) 9.2 eGFR >=60 (mL/min/1.73m2) 65 eGFR Non- >=60 (mL/min/1.73m2) 54 03/03/21 1120 - 03/02/21 1703 GLUCOSE POINT OF CARE 03/03/21 1120 03/03/21 0529 03/02/21 1703 GLUCOSE POINT OF CARE Glucose POC 70-99 (mg/dL) 215 210 147 03/03/21 0651 - 03/03/21 0651 OTHER 03/03/21 0651 OTHER Age (Years) 66 I ASSESSMENT & PLAN 1. Status post L3-L5 laminectomy. Management per neurosurgery. Pain management per them. She is on appropriate pain medications. Continuous oximetry. 2. Postop wound care per neurosurgery. 3. She is on gabapentin and Zanaflex per neurosurgery. Monitor on continuous oximetry and telemetry for at least 24 hours until she gets used to these medications. 4. Nausea, on scopolamine patch. 5. Dyslipidemia, resume Crestor, 6. Constipation prevention, Senokot and MiraLax. 7. Hypertension. Hold losartan due to low BP . 8. Diabetes. She takes 30 units of Lantus b.i.d., but we will start at 15 b.i.d. If she eats anddrinks well, it can go up slowly. Also, sliding scale insulin. BS noted. And well controlled. 9. Depression, on Celexa. 10; ETHEL due to hypovolemia , Resolved , continue to hold losartan , . SCDs for DVT prophylaxis Plan of care explained. Kimmie Barrios, EDWINA - 03/03/2021 10:13 AM CDT Neurosurgery Daily Progress Note Akilah Chávez is a 66 y/o female admitted on 03/01/21 after undergoing L3-[address] Turner. There were no intraoperative complications. S: Alert, sitting up in chair. Reports that pain is across low-back, but is tolerable. Denies any numbness, tingling, or pain in lower extremities. Nausea is improved, is tolerating fluids okay. + Gas, No BM yet. Apparently had some urinary retention and required strait catheterization, but has voided okay sincethen. O: BP 142/57 Pulse 88 Temp 98.8 F (37.1 C) Resp 12 Ht 1.6 m (5' 3") Wt 85.5 kg (188 lb 8 oz) SpO2 94% BMI 33.39 kg/m2|| Neurologic Exam: Psych/Mental Status: Level of Alertness: Awake, Alert Orientation: Oriented to conversation Memory: Intact in regular conversation Speech/Language: Spontaneous speech, clear, fluent, and appropriate Fund of Knowledge: Vocabulary and knowledge intact in regular conversation Attention/Concentration: Normal Comprehension: Intact Motor: Moves BUE with no obvious deficits. RLE: Iliopsoas 5/5, quadricep 5/5, hamstring 5/5, tibialis anterior 5/5, gastrocnemius 5/5, dorsiflexion / plantar flexion 5/5, EHL 5/5 LLE: Iliopsoas 4/5, quadricep 4/5, hamstring 4/5, tibialis anterior 5/5, gastrocnemius 5/5, dorsiflexion / plantar flexion 4/5, EHL 5/5 Sensory: Sensation: Intact to light touch Gait: Not tested Wound: Clean, dry, and intact Drain: patent, intact, 40 cc output overnight, 150 cc last 24 hours Labs: Hgb 03/02/21: 9.3 A: 2 Days Post-Op L3-L5 POSTERIOR LAMINECTOMY, DISCECTOMY & FORAMINOTOMY W/ MEDIAL FACETECTOMY Hx of HTN Hx of hyperlipidemia Hx of THU Hx of DMII with insulin Hx amyloidosis Hx WILLIE P: Continue decreased dose of gabapentin, drowsiness resolved Continue drain today, continue abx Diet as tolerated Activity as tolerated IM for medical co-management PT/OT following, appreciate recs SCDs for DVT prophylaxis; Heparin SubQ This patient was discussed with Dr. Turner who agrees with assessment and plan. Dina Shaw MD - 03/02/2021 4:06 PM CDT Images from the original note were not included. DAILY PROGRESS NOTE Akilah Chávez is a 66yr old female admitted on 03/01/2021. SUBJECTIVE No new event overnight Light headed NO sob No chest pain BP on the lower side OBJECTIVE Current Vital Signs Temp: 99.1 F (37.3 C) BP: 118/60 Pulse: 91 O2 Device: Room Air O2 Flow Rate (L/min): 1 l/min Resp: 17 Pain Ratin (out of 10) Weight: 85.5 kg (188 lb 8 oz) SpO2: 95 % Review of Systems - Constitutional ROS: negative Respiratory ROS: no cough, shortness of breath, or wheezing Cardiovascular ROS: negative Gastrointestinal ROS: negative Musculoskeletal ROS: negative Neurological ROS: negative Vitals Min/Max Last 24 Hours Patient Vitals for the past 24 hrs: BP Temp Pulse Resp SpO2 03/02/21 1505 118/60 99.1 F (37.3 C) 91 17 95 % 03/02/21 1118 93/66 98.8 F (37.1 C) 87 18 92 % 03/02/21 0739 95/47 99.7 F (37.6 C) 85 19 95 % 03/01/21 2312 118/63 98.9 F (37.2 C) 85 18 95 % 03/01/21 2157 84 03/01/21 2135 118/63 98.9 F (37.2 C) 86 18 98 % 03/01/21 2059 94 % 03/01/21 2057 (!) 85 % 03/01/21 1908 111/59 98.2 F (36.8 C) 84 16 (!) 89 % Intake and Out put last 24 hours 03/01 0700 - 03/02 0659 In: 1950 Out: 1130 Physical Exam General Appearance: alert, well appearing, and in no distress Chest: clear to auscultation, no wheezes, rales or rhonchi, symmetric air entry Heart: normal rate, regular rhythm, normal S1, S2, no murmurs, rubs, clicks or gallops Abdomen: soft, nontender, nondistended, no masses or organomegaly Neurological: alert, oriented, normal speech, no focal findings or movement disorder noted Extremities: peripheral pulses normal, no pedal edema, no clubbing or cyanosis Skin: normal coloration and turgor, no rashes, no suspicious skin lesions noted Patient Lines/Drains/Airways Status Active Lines Name: Placement date: Placement time: Site: Days: Peripheral IV 03/01/21 Antecubital Left 03/01/21 0611 Antecubital 1 Peripheral IV 03/01/21 Hand Right 03/01/21 0755 Hand 1 [place] Drain 03/01/21 Lower;Left Back Drain #1 03/01/21 0933 Back 1 Incision 03/01/21 Lower;Mid Back Incision 03/01/21 0913 Back 1 Current Medications lactated ringers IV solution IV Continuous New Bag at 03/02/21 1045 gabapentin (NEURONTIN) capsule 100 mg 100 mg Oral 3 times a day 100 mg at 03/02/21 1509 sodium chloride 0.9% flush (adult) 10 mL 10 mL IV 2 times a day and prn 10 mL at 03/02/21 0814 sodium chloride 0.9% flush (adult) 10 mL 10 mL IV 2 times a day and prn 10 mL at 03/02/21 0804 oxyCODONE (OXY-IR) tablet 5-10 mg 5-10 mg Oral Every 4 hours prn 10 mg at 03/01/21 1705 fentaNYL 100 mcg/2 mL preservative free injection solution 50 mcg 50 mcg IV Every 1 hour prn nalOXone (NARCAN) injection solution (vial) 0.4 mg 0.4 mg Injection Every 2 minutes prn nalOXone (NARCAN) injection solution (vial) 0.2 mg 0.2 mg Injection Every 2 minutes prn senna-docusate sodium (SENOKOT-S;PERICOLACE) tablet 1 tablet 1 tablet Oral 2 times a day 1 tablet at 03/02/21 0801 docusate sodium (COLACE) capsule 100 mg 100 mg Oral 2 times a day 100 mg at 03/02/21 0801 polyethylene glycol (MIRALAX) packet 1 packet 1 packet Oral Daily 1 packet at 03/02/21 0757 [START ON 03/03/2021] lactulose oral solution (10 gm/15 mL) 30 mL 30 mL Oral Daily [START ON 03/04/2021] bisacodyl (DULCOLAX) suppository 10 mg 10 mg Rectal Daily ondansetron (ZOFRAN) injection solution 4 mg 4 mg IV Every 4 hours prn acetaminophen (TYLENOL) tablet 650 mg 650 mg Oral Every 6 hours 650 mg at 03/02/21 1207 tiZANidine (ZANAFLEX) tablet 2 mg 2 mg Oral 3 times a day 2 mg at 08/10/21 1509 ceFAZolin (ANCEF) 2000 mg/20 mL sterile water IV syringe 2,000 mg IV Every 8 hours 2,000 mg at 03/02/21 0806 citalopram (celeXA) tablet 40 mg 40 mg Oral daily 40 mg at 03/02/21 0802 cyanocobalamin (VITAMIN B-12 DOTS) sublingual tablet 1,000 mcg 1,000 mcg Oral daily 1,000 mcg at 03/02/21 0800 insulin glargine (LANTUS) SQ injection 15 Units Subcutaneous 2 times a day 15 Units at rosuvastatin (CRESTOR) tablet 10 mg 10 mg Oral at bedtime vitamin D3 (cholecalciferol) tablet 25 mcg 25 mcg Oral daily 25 mcg at 03/02/21 0759 dextrose 50% IV solution 50 mL 25 g IV PRN per parameter glucagon for injection 1 mg vial 1 mg 1 mg Intramuscular PRN per parameter glucose chewable tablet 16 g 4 tablet Oral PRN per parameter Or carbohydrate 15 g 15 g Oral PRN per parameter insulin aspart (NovoLOG) SQ correction scale (Adult) 2-8 Units Subcutaneous 3 times a day 2 Units at 03/02/21 1208 Diagnostics and Labs Labs (Last day) 03/02/21825 - 03/02/21825 CBC 03/02/21825 CBC WBC 4.0-11.0 (K/uL) 10.2 RBC 3.80-5.30 (M/uL) 3.47 Hemoglobin 11.5-15.8 (g/dL) 9.3 Hematocrit 35.0-45.0 (%) 28.8 MCV 80.0-98.0 (fL) 83.0 MCH 25.5-34.0 (pg) 26.8 MCHC 31.5-36.5 (g/dL) 32.3 RDW-CV 11.5-15.5 (%) 14.3 RDW-SD 35.5-50.0 (fl) 43.0 Platelet Count 140-400 (K/uL) 232 MPV 8.5-12.0 (fL) 9.9 03/02/21 08 - 03/02/21825 CHEMISTRY 08/10/21 0826 08/10/21 0826 08/10/21 0826 CHEMISTRY Glucose 70-100 (mg/dL) 153 Sodium 135-145 (meq/L) 134 Potassium 3.5-5.3 (meq/L) 4.9 Chloride 99-110 (meq/L) 99 CO2 20-29 (meq/L) 26 Anion Gap with K 6-20 (meq/L) 14 BUN 6-22 (mg/dL) 20 Creatinine 0.60-1.10 (mg/dL) 1.33 BUN/Creatinine Ratio 10.0-25.0 15.0 Calcium 8.5-10.5 (mg/dL) 8.5 Corrected Calcium 8.5-10.5 (mg/dL) 9.0 Phosphorus 2.5-4.5 (mg/dL) 4.8 Magnesium 1.8-2.4 (mg/dL) 1.7 Bilirubin Total 0.2-1.2 (mg/dL) 0.3 Alkaline Phosphatase 30-150 (U/L) 57 ALT - SGPT 0-55 (U/L) 10 AST - SGOT 0-35 (U/L) 21 Protein Total 6.0-8.2 (g/dL) 6.0 Albumin 3.5-5.0 (g/dL) 3.4 eGFR >=60 (mL/min/1.73m2) 49 eGFR Non- >=60 (mL/min/1.73m2) 40 03/02/21 08 - 03/02/21 08 DIFFERENTIAL 03/02/21 0826 DIFFERENTIAL Seg Neut Absolute 1.8-8.0 (K/uL) 7.0 Lymphocytes Absolute 0.8-4.1 (K/uL) 2.0 Monocytes Absolute 0.0-1.0 (K/uL) 0.8 Eosinophils Absolute 0.0-0.7 (K/uL) 0.2 Basophil Absolute 0.0-0.2 (K/uL) 0.0 Immature Granulocyte Absolute 0.00-0.06 (K/uL) 0.07 Neutrophils Percent (%) 69.1 Neutrophils Abs. (Segs and Bands) (/uL) 7,000 Lymphocytes Percent (%) 20.1 Monocytes Percent (%) 7.6 Immature Granulocyte Percent (%) 0.7 Eosinophils Percent (%) 2.1 Basophil Percent (%) 0.4 Nucleated RBC (/100 WBC's) 0 08/10/21 1058 - 03/01/21 1659 GLUCOSE POINT OF CARE 03/02/21 1058 03/02/21 0515 03/01/21 2152 03/01/21 1659 GLUCOSE POINT OF CARE Glucose POC 70-99 (mg/dL) 174 199 172 192 03/02/21 0826 - 03/02/21 0826 OTHER 03/02/21 0826 OTHER Age (Years) 66 I ASSESSMENT & PLAN 1. Status post L3-L5 laminectomy. Management per neurosurgery. Pain management per them. She is on appropriate pain medications. Continuous oximetry. 2. Postop wound care per neurosurgery. 3. She is on gabapentin and Zanaflex per neurosurgery. Monitor on continuous oximetry and telemetry for at least 24 hours until she gets used to these medications. 4. Nausea, on scopolamine patch. 5. Dyslipidemia, resume Crestor, 6. Constipation prevention, Senokot and MiraLax. 7. Hypertension. Hold losartan due to low BP . 8. Diabetes. She takes 30 units of Lantus b.i.d., but we will start at 15 b.i.d. If she eats anddrinks well, it can go up slowly. Also, sliding scale insulin. BS noted. And well controlled. 9. Depression, on Celexa. 10; ETHEL due to hypovolemia , hold losartan , gentle IVF with LR , re check BMP in am . SCDs for DVT prophylaxis Plan of care explained. We will continue to monitor. Ana Awad PA-C - 03/02/2021 11:03 AM CDT Neurosurgery Daily Progress Note Akilah Chávez is a 66 y/o female admitted on 03/01/21 after undergoing L3-[address] Turner. There were no intraoperative complications. S: Sleeping in bed, easily wakes but falls back asleep quickly Reports nausea since last night Reports legs feel stronger from before surgery Denies new numbness, tingling, or pain in lower extremities O: BP 95/47 Pulse 85 Temp 99.7 F (37.6 C) Resp 19 Ht 1.6 m (5' 3") Wt 85.5 kg (188 lb 8 oz) SpO2 95% BMI 33.39 kg/m2|| Neurologic Exam: Psych/Mental Status: Level of Alertness: Drowsy, wakes and falls back asleep easily Orientation: Oriented to conversation Memory: Intact in regular conversation Speech/Language: Spontaneous speech, clear, fluent, and appropriate Fund of Knowledge: Vocabulary and knowledge intact in regular conversation Attention/Concentration: Normal Comprehension: Intact Motor: Exam limited due to patient's level of alertness. Moves BUE with no obvious deficits RLE: Iliopsoas 5/5, quadricep 5/5, hamstring 5/5, tibialis anterior 5/5, gastrocnemius 5/5 LLE: Iliopsoas 4/5, quadricep 4/5, hamstring 4/5, tibialis anterior 5/5, gastrocnemius 5/5 Sensory: Sensation: Intact to light touch Gait: Not tested Wound: Clean, dry, and intact Drain: patent, intact, 140 cc output overnight, 255 cc last 24 hours Labs: Hgb 03/02/21: 9.3 A: 1 Day Post-Op L3-L5 POSTERIOR LAMINECTOMY, DISCECTOMY & FORAMINOTOMY W/ MEDIAL FACETECTOMY Hx of HTN Hx of hyperlipidemia Hx of THU Hx of DMII with insulin Hx amyloidosis Hx WILLIE P: Scopolamine patch, Zofran for nausea Gabapentin dose decreased, possible culprit for drowsiness Continue drain today, continue abx Diet as tolerated Activity as tolerated IM for medical co-management PT/OT following, appreciate recs SCDs for DVT prophylaxis This patient was discussed with Dr. Turner who agrees with assessment and plan. documented in this encounter Consult Notes Yovany Horton MD - 03/01/2021 3:54 PM CDT Consult Note Consults Assessment / Plan Active Problems: Spinal stenosis ASSESSMENT AND PLAN: 1. Status post L3-L5 laminectomy. Management per neurosurgery. Pain management per them. She is on appropriate pain medications. Monitor for respiratory failure. Continuous oximetry. 2. Postop wound care per neurosurgery. 3. She is on gabapentin and Zanaflex per neurosurgery. Monitor on continuous oximetry and telemetry for at least 24 hours until she gets used to these medications. 4. Nausea, on scopolamine patch. 5. Dyslipidemia, resume Crestor, 6. Constipation prevention, Senokot and MiraLax. 7. Hypertension. Start losartan from tomorrow with hold parameters at a later time to make sure her kidney function is okay. 8. Diabetes. She takes 30 units of Lantus b.i.d., but we will start at 15 b.i.d. If she eats anddrinks well, it can go up slowly. Also, sliding scale insulin. 9. Depression, on Celexa. spoken to at bedside. Plan of care explained. We will continue to monitor. 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 HISTORY OF PRESENT ILLNESS: Ms. Akilah Chávez is seen in room 617 in the presence of her . She is admitted postop following L3-L5 posterior laminectomy and diskectomy. Postop, she feels drowsy,sleepy and tired. Other than that, she denies any new headache, chest pain, abdominal pain, nausea,vomiting, diarrhea or constipation. She does feel drowsy and tired. No nausea or vomiting. Rest of the review of systems is negative. Pain is well controlled. History Current Facility-Administered Medications Medication Dose Route Frequency sodium chloride 0.9% flush (adult) 10 mL 10 mL IV 2 times a day and prn scopolamine (TRANSDERM-SCOP) patch 1 patch 1 patch Transdermal Preop sodium chloride 0.9% flush (adult) 10 mL 10 mL IV 2 times a day and prn nalBUPHine (NUBAIN) injection solution 3 mg 3 mg IV Every 4 hours prn Or nalBUPHine (NUBAIN) injection solution 10 mg 10 mg Subcutaneous Every 4 hours prn oxyCODONE (OXY-IR) tablet 5-10 mg 5-10 mg Oral Every 4 hours prn fentaNYL 100 mcg/2 mL preservative free injection solution 50 mcg 50 mcg IV Every 1 hour prn nalOXone (NARCAN) injection solution (vial) 0.4 mg 0.4 mg Injection Every 2 minutes prn nalOXone (NARCAN) injection solution (vial) 0.2 mg 0.2 mg Injection Every 2 minutes prn senna-docusate sodium (SENOKOT-S;PERICOLACE) tablet 1 tablet 1 tablet Oral 2 times a day docusate sodium (COLACE) capsule 100 mg 100 mg Oral 2 times a day [START ON 03/02/2021] polyethylene glycol (MIRALAX) packet 1 packet 1 packet Oral Daily [START ON 03/03/2021] lactulose oral solution (10 gm/15 mL) 30 mL 30 mL Oral Daily [START ON 03/04/2021] bisacodyl (DULCOLAX) suppository 10 mg 10 mg Rectal Daily ondansetron (ZOFRAN) injection solution 4 mg 4 mg IV Every 4 hours prn acetaminophen (TYLENOL) tablet 650 mg 650 mg Oral Every 6 hours gabapentin (NEURONTIN) capsule 300 mg 300 mg Oral 3 times a day tiZANidine (ZANAFLEX) tablet 2 mg 2 mg Oral 3 times a day ceFAZolin (ANCEF) 2000 mg/20 mL sterile water IV syringe 2,000 mg IV Every 8 hours [START ON 03/02/2021] citalopram (celeXA) tablet 40 mg 40 mg Oral daily [START ON 03/02/2021] cyanocobalamin (VITAMIN B-12 DOTS) sublingual tablet 1,000 mcg 1,000 mcg Oral daily insulin glargine (LANTUS) SQ injection 15 Units Subcutaneous 2 times a day [START ON 03/02/2021] losartan tablet 25 mg 25 mg Oral daily [START ON 03/02/2021] rosuvastatin (CRESTOR) tablet 10 mg 10 mg Oral at bedtime [START ON 03/02/2021] vitamin D3 (cholecalciferol) tablet 25 mcg 25 mcg Oral daily dextrose 50% IV solution 50 mL 25 g IV PRN per parameter glucagon for injection 1 mg vial 1 mg 1 mg Intramuscular PRN per parameter glucose chewable tablet 16 g 4 tablet Oral PRN per parameter Or carbohydrate 15 g 15 g Oral PRN per parameter insulin aspart (NovoLOG) SQ correction scale (Adult) 2-8 Units Subcutaneous 3 times a day Allergies Allergen Reactions Lipitor [Atorvastatin] Rash Semaglutide Nausea and Vomiting and Blurred Vision Ozempic Sulfa Drugs Nausea Past Medical History: Diagnosis Date Adjustment disorder with depressed mood Allergic state Sulfa Drugs & Lipitor Amyloidosis (HCC) Anemia, iron deficiency Anxiety 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) (HCC) Blood transfusion without reported diagnosis 1979 Cervical radiculopathy Depression Diabetes mellitus (HCC) Type 2 Diabetic macular edema of both eyes (HCC) Diabetic retinopathy, nonproliferative (HCC) 06/13/2016 Elevated cholesterol Heart murmur Hyperlipidemia Hypertension Iron deficiency anemia Lumbago Lumbar radiculopathy Obesity, Class I, BMI 30.0-34.9 (see actual BMI) Post-traumatic osteoarthritis, left shoulder 06/07/2017 S/P arthroscopy of shoulder Past Surgical History: Procedure Laterality Date APPENDECTOMY 1979 ARTHROSCOPY Left 05/30/2017 Procedure: LEFT SHOULDER ARTHROSCOPY and debridement and lysis of adhesions, OPEN HARDWARE REMOVAL;; Surgeon: Christian Bullock MD BREAST SURGERY reduction 2004 1979, 1981 CATARACT W PHACO Left 07/22/2020 Procedure: LEFT CATARACT EXTRACTION W/ INTRAOCULAR LENS IMPLANT;; Surgeon: Jm Kruse MD CATARACT W PHACO Right 07/29/2020 Procedure: RIGHT CATARACT EXTRACTION W/ INTRAOCULAR LENS IMPLANT;; Surgeon: Jm Kruse MD CHOLECYSTECTOMY 1981 COLONOSCOPY N/A 07/11/2018 Procedure: COLONOSCOPY;; Surgeon: Liz Lehman MD HYSTERECTOMY 2000 INTRAVITREAL INJ A PHARMACOLOGIC AGENT (SEP PROC) Right 07/03/[address] Mcgraw INTRAVITREAL INJ A PHARMACOLOGIC AGENT (SEP PROC) Bilateral 09/24/2019 avastin Lucien INTRAVITREAL INJ A PHARMACOLOGIC AGENT (SEP PROC) Bilateral 10/29/2019 Avastin - Hang Mcgraw MD INTRAVITREAL INJ A PHARMACOLOGIC AGENT (SEP PROC) Right 12/10/2019 Avastin OD, Dr. Hang Mgcraw INTRAVITREAL INJ A PHARMACOLOGIC AGENT (SEP PROC) Right 01/07/2020 Lucien Avastin MAMMOPLASTY REDUCTION 2005 OPEN REDUCTION Left 07/13/2016 Procedure: LEFT PROXIMAL HUMERUS OPEN REDUCTION INTERNAL FIXATION ;; Surgeon: Rodrigue Morales MD SURGERY -birthmark removed from leg TRIGGER FINGER RELEASE Right 03/24/2016 Procedure: RIGHT THUMB TRIGGER FINGER RELEASE ;; Surgeon: Alejandro Bob MD UPPER ENDOSCOPY N/A 07/11/2018 Procedure: UPPER ENDOSCOPY;; Surgeon: Liz Lehman MD Family History Problem Relation Age of Onset Other Father broken pelvis Heart Attack Father myocardial infarction Diabetes Father mellistus Heart Disease Father Stroke Father Diabetes Type 2 Father Cerebrovascular Accident Father Thyroid Mother Cataracts Mother Depression Mother Other Sister anxiety Glaucoma Sister Anxiety Disorder Sister Diabetes Brother otherwise healthy No Known Problems Brother Breast Cancer Maternal Grandmother Depression Maternal Grandmother Diabetes Maternal Uncle Diabetes Paternal Aunt Early Paternal Uncle Heart Disease Paternal Grandfather Diabetes Type 2 Paternal Grandfather Kidney Disease Paternal Grandmother Diabetes Type 2 Brother Depression Brother Diabetes Type 2 Maternal Uncle Diabetes Type 2 Paternal Aunt Other Other see genetic counseling note (05/13/19) Blindness Neg Hx Macular Degeneration Neg Hx Amblyopia Neg Hx Retinal Detachment Neg Hx Strabismus Neg Hx Social History Socioeconomic History Marital status: Spouse name: Not on file Number of children: 2 Years of education: 16 Highest education level: Not on file Occupational History Occupation: [employer] Tobacco Use Smoking status: Never Smoker Smokeless tobacco: Never Used Tobacco comment: None Substance and Sexual Activity Alcohol use: No Alcohol/week: 0.0 standard drinks Comment: very rare Drug use: No Comment: Patient reports eating 2 marijuana brownies 06/29-04/08 Sexual activity: Not Currently Partners: Male control/protection: Post-menopausal Social History Narrative Born/Raised: Both parents in [place], [place]. Father of a heart attack in 1998. She is the third of 4 children with one sister and 2 brothers. Education: Graduated from [employer] in 1974. BA in Elementary Education at [employer] in 2016. Living Situation: Lives with . Latter-Day Status: Raised Protestant, struggling with attending episcopalian alone. Financial: Does cause some stress. Children: 2 adult children. Social Support: Mostly from family, few supports outside family. Social Determinants of Health Physical Activity: Days of Exercise per Week: Minutes of Exercise per Session: Stress: Feeling of Stress : Social Connections: Frequency of Communication with Friends and Family: Frequency of Social Gatherings with Friends and Family: Attends Latter-Day Services: Active Member of Clubs or Organizations: Attends Club or Organization Meetings: Marital Status: Intimate Partner Violence: Fear of Current or Ex-Partner: Emotionally Abused: Physically Abused: Sexually Abused: Financial Resource Strain: Difficulty of Paying Living Expenses: Food Insecurity: Worried About Running Out of Food in the Last Year: Ran Out of Food in the Last Year: Transportation Needs: Lack of Transportation (Medical): Lack of Transportation (Non-Medical): Alcohol Use: Frequency of Alcohol Consumption: Average Number of Drinks: Frequency of Binge Drinking: Review of Systems Review of Systems Constitutional: Positive for fatigue. HENT: Negative for ear pain. Eyes: Negative for visual disturbance. Respiratory: Negative for shortness of breath. Cardiovascular: Negative for chest pain. Gastrointestinal: Negative for abdominal pain. Endocrine: Negative for cold intolerance and heat intolerance. Genitourinary: Negative for dysuria. Musculoskeletal: Positive for back pain (post op mild ). Skin: Positive for wound (post op). Negative for rash. Allergic/Immunologic: Negative for immunocompromised state. Neurological: Negative for headaches. Hematological: Does not bruise/bleed easily. Psychiatric/Behavioral: Negative for confusion. Physical / Results Current Vital Signs Temp: 98.5 F (36.9 C) BP: 103/62 Weight: 85.5 kg (188 lb 8 oz) SpO2: 98 % Resp: 16 Pulse: 81 Current BMI (>50 = increased risk): (!) 33.4 O2 Device: Room Air O2 Flow Rate (L/min): 2 l/min Pain Ratin Physical Exam Vitals reviewed. Constitutional: Appearance: She is well-developed. Comments: Drowsi nut easily arousable HENT: Head: Normocephalic and atraumatic. Eyes: Conjunctiva/sclera: Conjunctivae normal. Cardiovascular: Heart sounds: Normal heart sounds. Pulmonary: Effort: Pulmonary effort is normal. Breath sounds: No wheezing or rales. Abdominal: Palpations: Abdomen is soft. Tenderness: There is no abdominal tenderness. There is no guarding or rebound. Musculoskeletal: General: No tenderness. Normal range of motion. Cervical back: Neck supple. Skin: General: Skin is warm and dry. Neurological: Mental Status: She is oriented to person, place, and time. Psychiatric: Behavior: Behavior normal. Thought Content: Thought content normal. documented in this encounter Miscellaneous Notes Case Mgmt - Gena PolancoRAMBO - 03/05/2021 10:00 AM CDT CASE MANAGEMENT / SOCIAL SERVICE FINAL TRANSITION PLAN TRANSITION DATE: 03/05/21 TRANSITION TIME: 1100 INTENDED PAYER SOURCE FOR AGENCY: Private Insurance TRANSITION DESTINATION: [address] [place] [address] Provider: Dr. Kristie Mijares [phone] N2N: [phone] Pharmacy: [facility] SPECIAL TRANSITION DAY INSTRUCTIONS TO NURSE / MD: MASK DESIGN ENGINEER: Please fax paperwork to above fax number Nursing: please call report at above number before or just as patient leaves. MD: please do [facility] transfer order set, ensure orders for PT, OT, ST(if needed) are included.When doing medication orders, there cannot be any range orders, and indication is needed for all meds. DOES ACCEPTING FACILITY REQUIRE COVID TESTING BEFORE DISCHARGE: Other: Not required TRANSITION TRANSPORTATION: Family Car TRANSPORTATION PAYMENT: Not applicable TRANSITION CHOICES OFFERED: Swing Bed DOES THE PATIENT HAVE A PRIMARY CARE PHYSICIAN? Yes Antwan Connelly MD PATIENT / SUBSTITUTE DECISION MAKER GOAL UPON TRANSITION: First Choice: Swing Bed PATIENT CHOICE EDUCATION: Not applicable MEDICARE 3 IP MIDNIGHT CRITERIA MET: N/A RESOURCE(S) PROVIDED: Placement DOES PATIENT HAVE CLOTHING TO WEAR AT DISCHARGE? Yes ANTICIPATED MODE OF TRANSPORT TO AND FROM FOLLOW UP APPOINTMENTS: As arranged by accepting facility Family Car VERIFIED CORRECT PHARMACY IS ENTERED FOR DISCHARGE: Yes - Pharmacy: . 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 Confirmed plan with PA, consulting MD, RN, and [facility]. Left Renuka at [place] a to confirm plan. [place]ax[place] screen to Renuka. Pt's spouse to provide transportation. Ptagreeable and excited for discharge plan. CURRENT READMISSION RISK SCORE / HANDOFF: Predictive Risk Score Risk of Unplanned Readmission: 9.2 Handoff given: N/A SIGNED: Gena Polanco Coordinator Of Online Programs - Case Management TCare Planning - Danica Castle RN - 03/04/2021 11:12 PM CDT Problem: PHYSICAL COMFORT Goal: CLIENT SATISFACTION: PAIN MANAGEMENT Description: DEFINITION: Extent of positive perception of nursing care to relieve pain. 1=Not at all satisfied, 2=Somewhat satisfied, 3=Moderately satisfied, 4=Very satisfied, 5=Completely satisfied. Outcome: NOC Rating 3 Flowsheets (Taken 03/04/2021 2310) Initial Score: 3 Target Score: 4 Plan of care reviewed with: Patient Patient specific goal for the day: increased mobility and adequate pain control Patient specific goal for the stay: adequate pain control and return to baseline functioning Achieve goal for stay: By discharge Patient Progress: pt states pain has been well controlled with current meds are Planning - Citlali Church RN - 03/04/2021 6:12 PM CDT Problem: RISK FOR FALLS Goal: MOBILITY Description: DEFINITION: Ability to move purposefully in own environment independently with or without assistive device. 1=Severely compromised, 2=Substantially compromised, 3=Moderately compromised,4=Mildly compromised, 5=Not compromised. Outcome: NOC Rating 3 Flowsheets (Taken 03/04/2021 1811) Initial Score: 3 Target Score: 4 Plan of care reviewed with: Patient Patient specific goal for the day: To get stronger Patient specific goal for the stay: Pt will be able to sit up and get out of bed with minimal assistance Achieve goal for stay: By discharge Patient Progress: Pt A/Ox4. Pt VSS. Pt rates low pain. Pt has poor appetite and only eating bites. ANA drain still in place and draining to suction. Pt is up with 1-2 gait belt, walker. No acute neuro changes. Pt up to the bathroom and sitting in chair. Will continue to monitor. Note: IS 3 TS 4 Case Mgmt - Gena Polanco LSW - 03/04/2021 3:09 PM CDT CASE MANAGEMENT / SOCIAL SERVICE TRANSITION PLAN - PROGRESS NOTE PLAN: Awaiting Medical Doctor Recommendations for Transition Will Continue to Follow for Support and Progression Towards Final Transition Plan BARRIERS TO TRANSITION: Medical barriers:. PT/OT, drain, IV abx, pain mgmt DOES ACCEPTING FACILITY REQUIRE COVID TESTING BEFORE DISCHARGE: N/A COMMENTS / PATIENT AND FAMILY RESPONSE TO PLAN: Reviewed pt's medical record, Spoke with Renuka from [place] who stated that insurance has approved for admission tomorrow. Faxed over in-network order. Since pt is vaccinated, no COVID test is required. Spoke with pt at bedside and updated her on insurance approval. Pt stated that her will be available for transportation and she will call to update him of plans. [place] Confirmation number: [id number]. Tentative D/C Plan: Pt to d/c to [place] via family car at 1100 on 03/05. Provider: Dr. Kristie Mijares - [phone] N2N: [phone] Pharmacy: Transfer 65 IS PATIENT'S ADMISSION ASSOCIATED WITH TIA, ISCHEMIC, OR HEMORRHAGIC STROKE?: No PATIENT / SUBSTITUTE DECISION MAKER GOAL UPON TRANSITION: First Choice: [facility] Facility Swing Bed ANTICIPATED NEEDS UPON TRANSITION: [facility] Facility Swing Bed RESOURCE(S) PROVIDED: Placement ANTICIPATED MODE OF TRANSPORT UPON TRANSITION: Family Car ANTICIPATED MODE OF TRANSPORT TO AND FROM FOLLOW UP APPOINTMENTS: As arranged by accepting facility VERIFIED CORRECT PHARMACY IS ENTERED FOR DISCHARGE: Yes - Pharmacy: . 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 She was able to ambulate 25ft in room with minAx1 & FWW. Based on today's session, patient would benefit from continued PT at a low intensity setting upon discharge. 6-Clicks Basic Mobility Score: 16 Activity Prescription with Nursing: With assist of 1-2 & FWW, walk in room and progressively increase to out in the wells 3 times perday. At a minimum, up to chair for all meals or 3 times per day. Encourage patient to perform personal cares at sink when able. Encourage walking to bathroom rather than use commode or bedpan. Anticipated D/C Service needs: Low intensity setting SUBJECTIVE Pt presents lying in bed. Complaints of slight low back pain. Agreeable to PT. OBJECTIVE Bed Mobility: minAx1 to move from supine to sitting edge of bed Transfers: Sit to/from stand with min/modAx1 & FWW. Cues given to stand up straight and extend hips during transfer. Able to complete 2 stands from edge of bed. Gait: Pt ambulated ~25ft in room with Jaime & FWW. A few small LOB that required Jaime from PT toprevent a fall. Slow gait speed. Decreased step length bilaterally, able to correct with cues. Stairs: Not assessed Balance Training: Good sitting balance. Fair standing w/ FWW. Other: Pt up in chair at end of session. Call button within reach. Education: Pt educated on activity progression & importance of continued ambulation during acutestay. Response to Activity: Observation: no change from baseline Interdisciplinary Communication: Spoke with interdisciplinary team members regarding patient plan ofcare. PLAN Continue plan of care. Today's Treatment: Gait Trainin minutes Therapeutic Exercise: 0 minutes Therapeutic Activity: 20 minutes TOTAL TIMED CODES: 20 minutes TREATMENT TOTAL TIME: 20 minutes Courtney FrenchSPT Associated attestation - Killian Mchugh PT - 03/04/2021 3:04 PM CDT Killian Simon PT, have reviewed the attached note and this students entries in Care Plan andPatient Education Activities and agree with the evaluation findings, plan of care and patient education notation. Nutrition Team - Ros Rios, JACQUELYN - 03/04/2021 2:00 PM CDT Nutrition Therapy Follow Up Hospital Day: 3 days Active Problems: 1. Status post L3-L5 laminectomy. Management per neurosurgery. Pain management per them. She is on appropriate pain medications. Continuous oximetry. 2. Postop wound care per neurosurgery. 3. She is on gabapentin and Zanaflex per neurosurgery. Monitor on continuous oximetry and telemetry for at least 24 hours until she gets used to these medications. 4. Nausea PMH: Amyloidosis, Anxiety, Depression, DM type II (A1C of 9.4 on 12/11), elevated cholesterol, Heart murmur, HLD, HTN, Obesity Recommendations/Plan: 1) Continue to advance diet as medically able. 2) Encourage intake of small, frequent meals t/o the day. Scheduled snacks per pt preference to support intakes NUTRITION ASSESSMENT Encouraged increased intakes with small, frequent meals as pt endorses poor appetite t/o admission. PO intakes have been inadequate x 3 days, meeting <50% estimated needs. Scheduled snacks to support intakes. Also provided and reviewed CHO Containing Foods handout as pt plans to meet with outpatient dietitian regarding T2DM in early March. Anthropometrics: Height: 160 cm (5' 3") Admission Weight: Weight: 85.5 kg (188 lb 8 oz) as of 03/01/2021 per electronic stand up scale Most Recent Weight: Weight: 85.5 kg (188 lb 8 oz) (03/01/21 0541) per electronic stand up scale BMI: Body mass index is 33.39 kg/m. IBW: 52 kg %IBW: 164% (based on admit weight) Usual Body Weight: 190 lbs per EMR Unintentional Weight Loss: No significant wt change noted per EMR. 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 Adjusted Body Weight: 60 kg Estimated Needs: 4758-8987 kcal/day ([place] [address]. Jeor x 1.2 Using: Admission Weight) 65 gm protein (1.1 gm/kg Using:Adjusted Body Weight) Fluids per MD Estimated average intake over the last 2 days: 440 kcal and 15 gm protein, which meets: 30 % of estimated kcal needs and 25 % of estimated protein needs. Intake Records: Intake Prior to Admit: patient denied any recent changes with appetite or PO intake prior to admission. She reports intake of 2-3 meals per day depending on the day. Pt was very drowsy at visit, so didnot obtain much more diet hx. Current Intake: Sub optimal - meeting <50% of estimated needs x 3 day LOS. Current Diet: Nutrition (From admission, onward) Start Ordered 03/03/21 0005 Diet - Diabetic Now Question: Modified Diets Answer: Diabetic 03/03/21 0003 03/01/21 1435 ADVANCE DIET TOLERATED ONCE Comments: May advance to regular diet once passing flatus with active bowel sounds 03/01/21 1434 Physical Assessment: Edema: (per assessment technician at 03/02) LUE Edema Trace RUE Edema Trace LLE Edema Trace RLE Edema Trace GI Assessment: Abdominal exam: Non-tender and Soft with Present bowel sounds, per assessment technician at 03/03. Stool Frequency: Pt has not had a documented BM since admission Wounds/Pressure Points: WDL (per assessment technician at 03/03) Functional Status: PT Following OT Following Nutrition Focused Physical Exam: No visible losses Nutritionally-Relevant Medications, Vitamins and Minerals: Dulcolax, vitamin B12, colace, Lantus, correction scale insulin, lactulose, zofran, miralax, senna, vitamin D3 Nutritionally-Relevant Biochemical Data: (03/04/2021) Glucose 188 H Phosphorus 4.8 H Magnesium 1.7 L Albumin 3.4 L GFR 54 L Allergies/Food Intolerance: Akilah is allergic to lipitor [atorvastatin], semaglutide, and sulfa drugs. Culturally Latter-Day Needs: NA INTERVENTIONS Encouraged adequate calories and optimal protein in small, frequent meals and snacks Will send snacks and supplements BID Provided nutrition education on CHO Containing Foods EMR Reviewed MONITORING/EVALUATION Monitor ability to consume and tolerate adequate intake to approximate estimated needs with accomodation of preferences and tolerances until intake is sustained within desirable limits Monitor I&O, weight trends, nutrition-related labs and medications, clinical status, and planof care r/t need for nutrition intervention and provide as warranted Nutrition Therapy will reassess every 1-5 days Ros Rios MS, RDN, LRD Pager #[phone] are Planning - Danica Castle RN - 03/04/2021 2:07 AM CDT Problem: RISK FOR FALLS Goal: FALL PREVENTION BEHAVIOR Description: DEFINITION: Personal or family director of patient care actions to minimize risk factors that might precipitate falls in the personal environment. 1=Never demonstrated, 2=Rarely demonstrated, 3=Sometimes demonstrated, 4=Often demonstrated, 5=Consistently demonstrated. Outcome: NOC Rating 3 Flowsheets (Taken 03/04/2021 0206) Initial Score: 4 Target Score: 5 Plan of care reviewed with: Patient Patient specific goal for the day: To keep pain controlled throughout shift Patient specific goal for the stay: To discharge with controlled pain Achieve goal for stay: By discharge Patient Progress: pt states pain is well controlled with meds. TCvlad Lopez - Citlali Church RN - 03/03/2021 6:13 PM CDT Problem: RISK FOR FALLS Goal: MOBILITY Description: DEFINITION: Ability to move purposefully in own environment independently with or without assistive device. 1=Severely compromised, 2=Substantially compromised, 3=Moderately compromised,4=Mildly compromised, 5=Not compromised. Outcome: NOC Rating 3 Flowsheets (Taken 03/03/2021 1810) Initial Score: 3 Target Score: 5 Plan of care reviewed with: Patient Patient specific goal for the day: To get stronger Patient specific goal for the stay: Pt will be able to sit up and get out of bed with minimal assistance Achieve goal for stay: By discharge Patient Progress: Pt A/Ox4. Pt VSS. Pt rates low pain. Pt has poor appetite and only eating bites. ANA drain still in place and draining to suction. Pt is up with 1-2 gait belt, walker. No acute neuro changes. Pt up to the bathroom and sitting in chair. Note: IS 3 TS 5 Case Mgmt - Gena Polanco LSW - 03/03/2021 11:52 AM CDT CASE MANAGEMENT / SOCIAL SERVICE TRANSITION PLAN - PROGRESS NOTE PLAN: Awaiting Medical Doctor Recommendations for Transition Will Continue to Follow for Support and Progression Towards Final Transition Plan BARRIERS TO TRANSITION: Medical barriers:. PT/OT, drain, IV abx, pain mgmt DOES ACCEPTING FACILITY REQUIRE COVID TESTING BEFORE DISCHARGE: N/A COMMENTS / PATIENT AND FAMILY RESPONSE TO PLAN: Reviewed pt's medical record, Met with pt at bedside and discussed placement options based on therapy recommendations. Pt agreeable to SNF/swing bed. Profiled pt to [place] [address] of [place]. [place] [facility] [place] [facility] are full at this time. [facility] bed in [place] have offered a bed and pt accepted. [place] submit ailin prior auth on this date. Anticipate pt will be ready for discharge on Monday. IS PATIENT'S ADMISSION ASSOCIATED WITH TIA, ISCHEMIC, OR HEMORRHAGIC STROKE?: No PATIENT / SUBSTITUTE DECISION MAKER GOAL UPON TRANSITION: First Choice: [facility] Facility Swing Bed ANTICIPATED NEEDS UPON TRANSITION: [facility] Facility Swing Bed RESOURCE(S) PROVIDED: Placement ANTICIPATED MODE OF TRANSPORT UPON TRANSITION: Family Car ANTICIPATED MODE OF TRANSPORT TO AND FROM FOLLOW UP APPOINTMENTS: As arranged by accepting facility VERIFIED CORRECT PHARMACY IS ENTERED FOR DISCHARGE: Yes - Pharmacy: . 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 Patient is presenting with impairments including decreased strength/endurance, decreased activity tolerance, fatigue/deconditioning, and decreased (I) with ADLs/transfers. Patient is demonstrating ability to complete ADLs/transfers with assistof 1-2. Patient will continue to benefit from skilled OT in order to address the above deficits to increase functional independence in ADLs, IADLs, and transfers/mobility. Objective Diagnosis: Lumbar Radiculopathy, s/p L3-5 Posterior Laminectomy, Discectomy & Foraminotomy w/ Medical Facetectomy Precautions: Fall Risk, Drain, Spinal Precautions and Bed/chair alarms Infection Control: Standard Precautions Cognition: Pt is alert. Oriented to: Name, , Month, Date and Year U/E: Patient able to tolerate 2# free weight in all planes/motions while seated with 1x10 reps. Provided education for safety with proper technique and speed to increase strength and endurance, ROM, and maintain joint integrity to increase independence with ADLs/transfers. Pt able to keep track of reps (I) and took rest breaks as needed. ADLs: Feeding: Pt able to (I) drink pop while seated in chair. Grooming: Pt denied need at this time. Dressing: Pt required maxA to adjust socks while seated in chair. Toileting: Pt completed toileting while seated with SBA/CGA. Transfers: Chair: Pt completed sit<> stand with maxA of 2. Bedside commode: Pt completed sit<> stand with maxA of 2. Mobility/Ambulation: Pt completed SPT from chair<>bedside commode with mod/max of 2. Gait belt and gripper socks donned during all out of bed activity. Pt required min cues for safety during transfers. At end of session: patient up in chair, alarm activated, call light and tray table within reach, education provided on use call light and waiting for assistance prior to transferring and RN updated onpatient status Pain: Pain at rest: 3/10 Pain during activity: 6/10 Location: Back Vitals: Pt on 0.5 Nasal cannula without signs of shortness of breath during OT. SpO2 at rest 95 %, SpO2 with activity 92% Interdisciplinary Communication: Nurse Education Education/Training provided: Role of OT, plan of care, ADLs, transfers/mobility, safety, AE needs,d/c recommendations, UE exercise Learners: Patient Readiness: accepting Method of Training: verbal Response: Verbalizes understanding; Will benefit from continued reinforcement: yes Adaptive Equipment Recommendations Adaptive Equipment Recommended: OT will continue to assess AE needs and will update as necessary Adaptive Equipment Available: shower chair, hand held shower, grab bars tub/shower, front-wheeled walker and cane. Pt reports that [place] next to toilet are narrow - not much room for grab bars there. Plan to obtain adaptive equipment: To further assess. Goals Patient/Family Stated Goal for Session: agreeable to therapy, to go to bathroom Goals to be met by discharge (ongoing: *Patient will complete functional transfers with moderate assistance with AE PRN as a measure of increased independence with ADL's and mobility *Patient will tolerate sitting at sink for G/H for >5 minutes with AD as needed as a measure of increased independence *Patient will verbalize and demonstrate understanding of 3 energy conservation techniques to increase safety upon discharge *Patient will demonstrate understanding of B UE HEP in order to increase strength, coordination, andROM to facilitate maximized independence in ADLs *Patient will further participate with cognitive assessment to increase safety with functional tasks *Patient will verbalize and demonstrate their understanding of spinal precautions by time of discharge Patient continues to demonstrate progress towards OT goals: Yes Charges Treatment/Minutes: Today's Evaluation/Treatment Self care/home management: 15 minutes Therapeutic exercise: 10 minutes Total Treatment Time: 25 minutes Treatment Session 2/ Weekly Assessment/Plan (Day 5): Continue OT POC. Therapist Alpha Pager Number [phone] hysical Therapy - Courtney French SPT - 03/03/2021 9:29 AM CDT Physical Therapy Acute Inpatient Treatment Note ASSESSMENT/RECOMMENDATIONS Pt presents with decreased functional mobility, LE strength & deconditioning. Pt was able to complete SPT from chair <> commode with modAx2 & FWW, but was unable to ambulate at this date.Given current mobility level, patient would benefit from continued PT at a low intensity setting upon discharge. 6-Clicks Basic Mobility Score: 8 Activity Prescription with Nursing: Assist patient to chair 3 times per day for 30 to 60 minutes or for all meals. Use Ax2 & FWW Encourage patients to do personal cares when sitting up. Use bathroom or commode rather than bedpan. Anticipated D/C Service needs: Low intensity setting SUBJECTIVE Pt presents sitting up in chair. Complaints of pain in lumbar region. Agreeable to PT. Starting vitals: BP 139/67; O2 89 (on 1L O2) HR 86. OBJECTIVE Bed Mobility: Not assessed Transfers: Sit to/from stand with modAx2 & FWW. Pt was able to complete 4 stands from chair. Stand-pivot transfer from chair <> commode with modAx2 & FWW. Cues given for hand placement & to stand up straight during transfer. Able to take a few side steps during pivot transfers. Gait: Unable Stairs: Unable Balance Training: Good sitting balance. Fair standing balance w/ FWW. Other: Pt returned to chair at end of session. Chair alarm on & call button within reach. Education: Pt educated on activity progression, importance of ambulation and possible discharge placement. Response to Activity: Observation: no change from baseline Interdisciplinary Communication: Spoke with interdisciplinary team members regarding patient plan ofcare. PLAN Continue plan of care. Today's Treatment: Gait Trainin minutes Therapeutic Exercise: 0 minutes Therapeutic Activity: 24 minutes TOTAL TIMED CODES: 24 minutes TREATMENT TOTAL TIME: 24 minutes Courtney French, SPT Associated attestation - Killian Mchugh PT - 03/03/2021 9:44 AM CDT Killian Simon PT, have reviewed the attached note and this students entries in Care Plan andPatient Education Activities and agree with the evaluation findings, plan of care and patient education notation. Care Planning - Danica Castle RN - 03/03/2021 12:16 AM CDT Problem: PHYSICAL COMFORT Goal: CLIENT SATISFACTION: PAIN MANAGEMENT Description: DEFINITION: Extent of positive perception of nursing care to relieve pain. 1=Not at all satisfied, 2=Somewhat satisfied, 3=Moderately satisfied, 4=Very satisfied, 5=Completely satisfied. Outcome: NOC Rating 3 Flowsheets (Taken 03/02/20211999) Initial Score: 2 Target Score: 4 Plan of care reviewed with: Patient Patient specific goal for the day: To get stronger Patient specific goal for the stay: To stand and up to the chair x1 daily Achieve goal for stay: By discharge Patient Progress: pt denies pain at this time. Occupational Therapy - Dameon Winters OTR/Bladimir - 03/02/2021 3:38 PM CDT Occupational Therapy Acute Care Evaluation Note Impression/Recommendations Recommending low intensity setting upon medical stability. Patient is presenting with impairments including decreased strength/endurance, decreased activity tolerance, fatigue/deconditioning, and decreased (I) with ADLs/transfers. Patient is demonstrating ability to complete ADLs/transfers with assistof 1-2. Patient will continue to benefit from skilled OT in order to address the above deficits to increase functional independence in ADLs, IADLs, and transfers/mobility. 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) ([facility]) Blood transfusion without reported diagnosis 1980 Cervical radiculopathy Depression Diabetes mellitus (HCC) Type 2 Diabetic macular edema of both eyes ([facility]) Diabetic retinopathy, nonproliferative ([facility]) 06/13/2016 Elevated cholesterol Heart murmur Hyperlipidemia Hypertension Iron deficiency anemia Lumbago Lumbar radiculopathy Obesity, Class I, BMI 30.0-34.9 (see actual BMI) Post-traumatic osteoarthritis, left shoulder 06/07/2017 S/P arthroscopy of shoulder Activity Level: Progressive mobility bundle Precautions: Fall Risk, Drain, Spinal Precautions and Bed/chair alarms Infection Control: Standard Precautions Patient History Social/Home Environment: Patient lives: with their House: Split-level home Steps to enter: Yes- 7-8 steps up, 6 steps down Home Environment: Bed/Bath on main level: No Bathroom Setup: tub/shower with curtain 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 Adaptive Equipment Available: shower chair, hand held shower, grab bars tub/shower, front-wheeled walker and cane. Pt reports that [place] next to toilet are narrow - not much room for grab bars there. Present for Eval: Patient Objective Activities of Daily Living: Lower Extremity Dressing: total assistance - Pt unable to doff/don socks due to balance issues and decreased strength while seated at EOB. Comments: Unable to assess ADL areas due to total A of transferring from supine<>sit and sit<>stand. Transfers: Bed: total assistance - Pt required assist of 2 to facilitate log roll technique due to unsteadiness, strength, and overall insight. Max assistance<>total assistance - Pt performed 2 sit<>stand transfers. 1st trial required total assist with assist of 2. Pt needed verbal cues to maintain upright position in regard to spinal precautions. 2nd trial required max assistance with assist of 1,Pt able to tolerate more weight and assist more in transfer. Mobility/Ambulation: not assessed. Pt unable to engage in mobility/ambulation due to LE fatigue, decreased strength, and deconditioning. Pt simulated action of 'marching in place' by slowly lifting each foot up/down for 3 reps on each foot while holding onto FWW and assist of 1. Comments: Pt communicated that her L LE is weaker than her R LE which makes it difficult to bear weight on her LEs while trying to increase her standing tolerance. At end of session: patient resting in bed, alarm activated, bed in lowest position, call light and tray table within reach, education provided on use call light and waiting for assistance prior to transferring and Gripper socks and gait belt donned for all OOB activity. Pain: Pain at rest: 6/10 Pain during activity: Pt communicated feeling of pain but did not identify #. Location: Back (surgical site) Vitals: Pt on 1L without signs of shortness of breath during OT. SpO2 >90% throughout session. BP - supine: 14:05 - 121/60 BP - sittin:13 - 113/93 Upper Extremity Function: Range of Motion: Right:within functional limits Left: within functional limits Strength: Right: limited Left: limited Endurance: limited Coordination: impaired Sensation: intact Edema: No Dominant Hand: right Comments: Pt experiencing decreased B UE strength and endurance which interferes with her (I) with ADLs/transfers. Pt would benefit from B UE exercise/strengthening program (HEP). Cognition: Orientation: somnolent. Oriented to: Name, , Month, Day of Week, Date, Year, Place and City Attention: intact Following Directions: intact - although, Pt experiencing difficulty due to overall limited strength/endurance. Safety Awareness: impaired - Pt would benefit from increased cueing to adhere to spinal precautions. Impulsivity: None Comments: Pt requiring verbal cues and demonstration for log roll technique. Visual/Perception: Glasses: Yes Interdisciplinary Communication: Nurse Education Education/Training provided: Role of OT, plan of care, ADLs, transfers/mobility, safety, AE needs,spinal precautions, d/c recommendations Learners: Patient Readiness: accepting Method of Training: verbal and handout Response: Verbalizes understanding; Will benefit from continued reinforcement: yes Adaptive Equipment Recommendations Adaptive Equipment Recommended: OT will continue to assess AE needs and will update as necessary. Pt communicated that her will be able to assist with LE dressing, but she would be interested in hearing more about AE. Plan to obtain adaptive equipment: To further assess. Assessment/Plan Assessment: Patient demonstrates decreased UE strength, decreased physical conditioning, decreased safety awareness, decreased independence with ADL/IADL tasks and decreased independence with functional mobility Patient showing a decrease in ADL/transfer performance and will benefit from continued OT. Plan: Patient to be seen 3-5x/week to work toward goals listed below. Treatment plan will consist of Monday thru Monday sessions. Goals Patient/Family Stated Goal for Session: agreeable to therapy evaluation, transfer training Goals to be met by discharge: *Patient will complete functional transfers with moderate assistance with AE PRN as a measure of increased independence with ADL's and mobility *Patient will tolerate sitting at sink for G/H for >5 minutes with AD as needed as a measure of increased independence *Patient will verbalize and demonstrate understanding of 3 energy conservation techniques to increase safety upon discharge *Patient will demonstrate understanding of B UE HEP in order to increase strength, coordination, andROM to facilitate maximized independence in ADLs *Patient will further participate with cognitive assessment to increase safety with functional tasks *Patient will verbalize and demonstrate their understanding of spinal precautions by time of discharge Treatment Provided Please refer to details above for treatment provided. Charges Treatment/Minutes: Today's Evaluation/Treatment Evaluation Self care/home management: 10 minutes Total for time-based codes: 10 minutes Total treatment time: 53 minutes Evaluation Complexity PMH/Comorbidities that affect Occupational Performance: See PMHx Occupational Profile/Medical and Therapy History: LOW - Brief history relating to presenting problem Patient Assessment: LOW - 1-3 performance deficits relating to physical, cognitive, psychosocial limitations/restrictions Clinical Decision Making: LOW - Low complexity, limited amount of treatment options, no assessment modification, no comorbidities Evaluation Complexity: Low Therapist Alpha Pager Number: [phone] ase Mgmt - Gena Polanco LSW - 03/02/2021 2:49 PM CDT CASE MANAGEMENT / SOCIAL SERVICE TRANSITION PLAN - INITIAL ASSESSMENT TRANSITION PLAN: Awaiting Medical Doctor Recommendations for Transition Will Continue to Follow for Support and Progression Towards Final Transition Plan BARRIERS TO TRANSITION: Medical barriers:.PT/OT, drain, IV abx, pain mgmt COMMENTS / PATIENT AND FAMILY RESPONSE TO PLAN: Reviewed pt medical record, Met with pt at bedside and reviewed the role of child welfare social worker in case management. Offered support and active listening. Pt lives with and is independent with cares. Pt uses a FWW and a cane. Ptmanages own medications and sees a PCP regularly. Pt's to drive home. Pharmacy is correct. Talked through potential discharge options with pt. Pt would be agreeable to home health or placement. Will continue to follow and await recommendations from treatment team. ADMISSION DX: Lumbar radiculopathy [M54.16] Intervertebral disc disorder with radiculopathy of lumbosacral region [M51.17] Spinal stenosis, lumbar region, with neurogenic claudication [M48.062] PATIENT STATUS: Inpatient RELEASE OF INFORMATION: Yes -- verbal for: .discharge planning SOURCES OF INFORMATION (See demographics for contact information): Medical Record Patient CURRENT LIVING SITUATION / LEVEL OF ASSISTANCE: Lives with Independent Cane Front Wheeled Walker COMMUNITY SERVICES: None HEALTHCARE DIRECTIVE: No POWER OF NOTE TAKER: None FINANCIAL CONCERNS: No Concerns PRIMARY CARE PHYSICIAN: Yes Antwan Connelly MD : No IS PATIENT'S ADMISSION ASSOCIATED WITH TIA, ISCHEMIC, OR HEMORRHAGIC STROKE?: No LANGUAGE / COMMUNICATION BARRIERS: No PATIENT / SUBSTITUTE DECISION MAKER GOAL UPON TRANSITION: First Choice: Home: Family/Friend Support ANTICIPATED NEEDS, TRANSITION CHOICES OFFERED: Home: Family/Friend Support RESOURCE(S) PROVIDED: nothing needed at this time DOES PATIENT HAVE CLOTHING TO WEAR AT DISCHARGE? Yes ANTICIPATED MODE OF TRANSPORT UPON DISCHARGE: Family Car VERIFIED CORRECT PHARMACY IS ENTERED FOR DISCHARGE: Yes - Pharmacy: . [facility] [place] [id number] CURRENT READMISSION RISK SCORE Predictive Risk Score Risk of Unplanned Readmission: 6.7 Please refer to readmission risk assessment flowsheet for further details. SIGNED: Gena Polanco Coordinator Of Online Programs - Case Management are Planning - Citlali Church RN - 03/02/2021 1:14 PM CDT Problem: PHYSICAL COMFORT Goal: CLIENT SATISFACTION: PAIN MANAGEMENT Description: DEFINITION: Extent of positive perception of nursing care to relieve pain. 1=Not at all satisfied, 2=Somewhat satisfied, 3=Moderately satisfied, 4=Very satisfied, 5=Completely satisfied. Outcome: NOC Rating 2 Flowsheets (Taken 03/02/2021 1309) Initial Score: 2 Target Score: 4 Plan of care reviewed with: Patient Patient specific goal for the day: To get stronger Patient specific goal for the stay: To stand and up to the chair x1 daily Achieve goal for stay: By discharge Patient Progress: PT A/Ox4. Pt VSS. Pt has weakness to the lower extemities. Pt reports low pain 3-4/10. Pt dangled and stand by bedside. Pt ANA drain emptied and dressing changed. LR running at 100mL/hr. Note: IS 2 TS 4 Nutrition Team - Symone Choudhary RD - 03/02/2021 11:41 AM CDT Nutrition Therapy Initial Assessment Hospital Day: 0 days Active Problems: L3-L5 POSTERIOR LAMINECTOMY, DISCECTOMY & FORAMINOTOMY W/ MEDIAL FACETECTOMY PMH: Amyloidosis, Anxiety, Depression, DM type II (A1C of 9.4 on 12/11), elevated cholesterol, Heart murmur, HLD, HTN, Obesity Recommendations/Plan: 1) Continue to advance diet as medically able. 2) Encourage intake of small, frequent meals t/o the day. NUTRITION ASSESSMENT Patient noted to have an elevated A1C of 9.4 in November of this year. Patient reports that she has an upcoming appointment with an RD in March. Per chart review, this was confirmed. Patient has an appointment with Candace Polanco RD, CDE on March 25. Education not warranted during hospital stay at this time. Anthropometrics: Height: 160 cm (5' 3") Admission Weight: Weight: 85.5 kg (188 lb 8 oz) as of 03/01/2021 per electronic stand up scale Most Recent Weight: Weight: 85.5 kg (188 lb 8 oz) (03/01/21 0541) per electronic stand up scale BMI: Body mass index is 33.39 kg/m. IBW: 52 kg %IBW: 164% (based on admit weight) Usual Body Weight: 190 lbs per EMR Unintentional Weight Loss: No significant wt change noted per EMR. 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 Adjusted Body Weight: 60 kg Estimated Needs: [id number] kcal/day ([place] [address]. Jeor x 1.2 Using: Admission Weight) 65 gm protein (1.1 gm/kg Using:Adjusted Body Weight) Fluids per MD Intake Records: Intake Prior to Admit: patient denied any recent changes with appetite or PO intake prior to admission. She reports intake of 2-3 meals per day depending on the day. Pt was very drowsy at visit, so didnot obtain much more diet hx. Current Intake: Tolerating CL diet. Had some soda and apple juice at bedside. She does report that her appetite is pretty poor today. Pt was also very drowsy at visit. Current Diet: Nutrition (From admission, onward) Start Ordered 03/01/21 1435 Diet - Clear Liquid Now Question: Standard Diets Answer: Clear Liquid 08/09/21 1434 03/01/21 1435 ADVANCE DIET TOLERATED ONCE Comments: May advance to regular diet once passing flatus with active bowel sounds 03/01/21 1434 Physical Assessment: Edema: (per assessment technician at 1441 yesterday) Generalized Edema Trace LUE Edema Trace RUE Edema Trace LLE Edema 1 RLE Edema 1 GI Assessment: Abdominal exam: WDL, per assessment technician at 2135 yesterday. Stool Frequency: Pt has not had a documented BM since admission Wounds/Pressure Points: (per assessment technician at 213 yesterday) WDL Functional Status: PT Following OT Following Nutrition Focused Physical Exam: No visible losses Nutritionally-Relevant Medications, Vitamins and Minerals: B12, colace, SSI, Lantus, LR IV, Miralax, Crestor, Senokot-S, Vitamin D3 Nutritionally-Relevant Biochemical Data: (03/02/2021) Glucose 153 H Sodium 134 L Creatinine 1.33 H Phosphorus 4.8 H Magnesium 1.7 L Albumin 3.4 L GFR 40 L Allergies/Food Intolerance: Akilah is allergic to lipitor [atorvastatin], semaglutide, and sulfa drugs. Culturally Latter-Day Needs: no INTERVENTIONS Encouraged adequate calories and optimal protein in small, frequent meals and snacks Offered oral nutritional supplements - patient declined Obtained diet history MONITORING/EVALUATION Monitor diet advancement Monitor ability to consume and tolerate adequate intake to approximate estimated needs with accomodation of preferences and tolerances until intake is sustained within desirable limits Monitor I&O, weight trends, nutrition-related labs and medications, clinical status, and planof care r/t need for nutrition intervention and provide as warranted Nutrition Therapy will reassess every 1-[address], LRD Pager # [phone] hysical Therapy - Ros Woo, PT - 03/02/2021 9:44 AM CDT Physical Therapy Acute Inpatient Initial Evaluation ASSESSMENT/RECOMMENDATIONS Patient presents with decreased strength in L LE > R, impaired coordination, and decreased movement tolerance. Patient had adverse response moving from supine into sitting. PT will continue to follow. 6-Clicks Basic Mobility Score: 8 Activity Prescription with Nursing: Sit at edge of bed 3 times per day, place feet on floor if possible. Use Ax2 Encourage patient to perform personal cares when sitting up. Anticipated D/C Service needs: Too early to determine. Will update as medical acuity diminishes. Diagnosis: No diagnosis found. 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 She also has no past medical history of Difficult intravenous access, Disorder of thyroid, Family history of malignant hyperthermia, Hard to intubate, Malignant hyperthermia, PONV (postoperative nausea and vomiting), or Spinal headache. Patient has a past surgical history that includes breast surgery; appendectomy (1979); (1979, 1981); cholecystectomy (1981); hysterectomy (2000); surgery; trigger finger release (Right, 03/24/2016); open reduction (Left, 07/13/2016); mammoplasty reduction; arthroscopy (Left, 05/30/2017); upper endoscopy (N/A, 07/11/2018); colonoscopy (N/A, 07/11/2018); intravitreal inj a pharmacologic agent (sep proc) (Right, 07/03/2019); intravitreal inj a pharmacologic agent (sep proc) (Bilateral, 09/24/2019); intravitreal inj a pharmacologic agent (sep proc) (Bilateral, 10/29/2019); intravitreal inj a pha rmacologic agent (sep proc) (Right, 12/10/2019); intravitreal inj a pharmacologic agent (sep proc) (Right, 01/07/2020); cataract w phaco (Left, 07/22/2020); cataract w phaco (Right, 07/29/2020); and laminectomy discectomy (N/A, 03/01/2021). 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 HR 79 bpm, O2 Sat 96% at rest. Patient on 1L O2 through NC. Cognition: Patient Alert and conversive, speech slowed but able to articulate Posture: Unremarkable Observation: Patient appears fatigued, Patient closes eyes throughout session and needs cues to keep them open. Range of Motion: Bilateral lower extremities WFL Refer to Occupational Therapy report for upper extremity range of motion. Strength: Right: WFL observed with supine movements Left: Decrased- unable to complete antigravity movements in supine Refer to Occupational Therapy report for upper extremity strength testing. Sensation: Grossly intact bilaterally. Tone: Normal. Coordination: impaired. Patient undershoots movements with B UEs. Bed Mobility: Supine to Sit: Mod Ax2 Sit to Supine: Mod Ax2 Transfers: Sit to/from Stand: Not trialed Balance: Static Sitting Balance: fair Dynamic Sitting Balance: poor Gait: Not trialed Stairs: Not trialed Response to Activity: Vitals: Sitting EOB: HR 80, O2 sats 80%, BP 84/46 Supine 1 minute with 1L O2 NC: O2 Sats 95%, BP: 83/49 Supine 5 minutes: BP 94/49 Patient reports feeling nauseated and faint while sitting EOB. Once supine patient no longer feels faint, but is still feeling nauseated. Patient left laying supine with head elevated and call light close. Education: Patient was educated on physical therapy role, plan of care, spinal precautions, bed mobility techniques, importance of continued ambulation, limit sitting time to 30 minutes initially and goals today through explanation. They accepted teaching and verbalized understanding Interdisciplinary Communication: Spoke with interdisciplinary team members regarding patient plan ofcare. Today's Treatment Evaluation: Completed Gait trainin minutes Therapeutic exercise: 0 minutes Therapeutic activity: 0 minutes TOTAL TIME-CODED MINUTES: 0 minutes TOTAL TREATMENT TIME: 33 minutes Treatment provided: Moderate complexity evaluation GOALS To be achieved by discharge. Patient will transfer sit to/from supine with SBA assistance. Patient will transfer from sit to/from stand with SBA assistance and equipment as needed to progressto safe household mobility. Patient will be able to ambulate 150 feet using FWW with CGA assistance to progress to safe functional mobility in the home. Patient will be able to negotiate 5 stairs with rail with CGA assistance to progress to safe functional mobility in the home. Patient will demonstrate adequate awareness of fall prevention tactics to reduce risk of falling. Patient will be able to state spinal precautions for safe mobility. PLAN Will continue 5 times per week. Physical Therapy Services: balance training education equipment gait training therapeutic activity therapeutic exercise transfer training Ros Woo PT, DPT Pager [phone] are Planning - Maira Culver RN - 03/02/2021 6:30 AM CDT Problem: RISK FOR FALLS Goal: FALL PREVENTION BEHAVIOR Description: DEFINITION: Personal or family director of patient care actions to minimize risk factors that might precipitate falls in the personal environment. 1=Never demonstrated, 2=Rarely demonstrated, 3=Sometimes demonstrated, 4=Often demonstrated, 5=Consistently demonstrated. Outcome: NOC Rating 3 Flowsheets (Taken 03/02/2021 0530) Initial Score: 3 Target Score: 4 Plan of care reviewed with: Patient Patient specific goal for the day: To keep pain controlled throughout shift Patient specific goal for the stay: To discharge with controlled pain Achieve goal for stay: By discharge Patient Progress: Pt is rating pain under 5/10, scheduled tylenol administered with good effect. Pt was able to dangle this shift. Bernie is out and ANA continues to drain, see flowsheet for details. A&Ox4, but frequently drowsy. VSS on RA, safety and fall precautions in place. linical Team - Cris Hayward RN - 03/01/2021 5:30 PM CDT Upon Transfer to [facility] room [facility], skin assessment completed with Ros Rivera RN. Upon skin assessment including pressure points findings include: Scars to left shoulder, bilateral breast, abdomen, bilateral knees. Nodule to right carranza (2cm, red). Dry skin to bilateral feet and heels. Plan/Intervention pressure redistribution mattress, encourage early and frequent ambulation, proper nutrition as able to tolerate. Will continue to monitor. perative Note - Easton Turner MD - 03/01/2021 10:35 AM CDT Patient is a 66-year-old female who had significant back pain and lower extremity pain worse on the left side than the right side. Her pain was on both the lower extremities as well. The patient backpain was not significant enough compared to the leg pain. So she was consented for L3-5 decompression only. The patient was explained the risk of the procedure which includes but not limited to bleeding infection nerve injury vascular injury spinal fluid leak recurrent disc herniation possibility offusion in the future. Preoperative diagnosis L3-4 L4-5 central and foraminal stenosis. Postoperative diagnosis L3 and L4 complete laminectomy and partial less than 50% laminectomy of L5 with discectomy at L3-4 and L4-5 and medial facetectomy and foraminotomy. Procedure in detail Patient was brought to the OR sedated intubated and positioned prone on the OR table. The site was prepped and draped in marked with the help of fluoroscopic assistance. We did a timeout. We made anincision from the top of L3 to midpoint of L5. We extended the incision to the subcutaneous tissue. Then using the Bovie we achieved hemostasis followed by extension across the fascia to expose the spinous process lamina and the medial part of the facet joint and the pars. Once exposure was completed we placed a cerebellar retractor in place. We used a Leksell rongeur to remove the spinous process of 4 lumbar 3 and lumbar 4 and top of lumbar5. We also removed some of the lamina with the same Leksell rongeur. Using a high-speed drill we drilled out all the lamina and to some extent the medial aspect of the facet joint. Once the bone wasremoved we could see that there was significant ligamental hypertrophy and also some of the corticosteroid injection that the patient received. We gradually dissected the ligament off of the dura and removed it with the help of [place]. We did it L3-5 first on the right side followed by the left side. Once all the decompression was achieved we passed the Antonette to make sure there was no additional foraminal compression. Then we retracted L5 nerve root medially and did the L4-5 discectomy on the right side first. We opened the annulus with the help of 15 blade and with the help of pituitary we removed significant amount of bulging part of the disc. We repeated the same procedure for L3-4 onthe right side followed by L4-5 and L3-4 on the left side. Once we confirmed that the patient decompression was very good and the nerve roots of lumbar 3, 4, 5were all the well decompressed on both sides we copiously irrigated the site with the vancomycin irrigation followed by meticulous hemostasis. We placed a ANA drain and closed the muscle and fascia with 0 Vicryl followed by 2-0 Vicryl for the subcutaneous tissue followed by Monocryl for the skin and Dermabond. After the surgery I spoke to the patient's Yo in the consultation room to in the waitingroom and told him about the surgery proceedings and findings and the postoperative course. Estimated Blood Loss: 75 mL Drains: 1 ANA Findings: stenosis Complications: none Postoperative Condition: stable ostOp Progress Note - Easton Turner MD - 03/01/2021 10:33 AM CDT Immediate Post-Operative / Post Procedure Progress Note Att. Phys: Easton Turner MD Pt. Type: Ambulatory Surgery Operative Date: 03/01/2021 Surgeon: Surgeon(s) and Role: * Easton Turner MD - Primary Multimedia Developer: Hand Meat Salter : Apple De Los Santos RN Relief Hand Meat Salter : Jonna Fischer RN Scrub Person : Alesia Guzmán CST [employer] Consultant: Ramírez Rock PA-C X-Ray Tech: Christa Guerin, RT(R) The skilled assistance of my certified surgical assistant, Nam was necessary because help required with exposure, retraction and suction. They participated in assistance with the procedure. Pre-Operative Diagnosis: Pre-Op Diagnosis Codes: * Lumbar radiculopathy [M54.16] * Intervertebral disc disorder with radiculopathy of lumbosacral region [M51.17] * Spinal stenosis, lumbar region, with neurogenic claudication [M48.062] Post-Operative Diagnosis: L3-5 Decompression discectomy foraminotomy and medial facetectomy Anesthesia Type: general Operative Procedure: Procedure(s): L3-L5 POSTERIOR LAMINECTOMY, DISCECTOMY & FORAMINOTOMY W/ MEDIAL FACETECTOMY * No specimens in log * no implants used for procedure Fluids Given: See Anesthesia Record Urine Output: See Anesthesia Record Estimated Blood Loss: 75 mL Drains: 1 ANA Findings: stenosis Complications: none Postoperative Condition: stable documented in this encounter Plan of Treatment Date Type Specialty Care Team Description 03/25/2021 Office Visit Nutrition Candace Polanco RD, CDE [address] [place] [address] [phone] Name Type Priority Associated Diagnoses Order S [facility] CLINIC REFERRAL SKILLED Referral Routine Spinal stenosis O rdered: 03/03/2021 NURSING FACILITY NON ONE CHART documented as of this encounter Implants Implanted Type Area Retail Salesman Device Shelf Model / Identifier Expiration Serial / Lot Date Iol Pre-Load Tecnis Simp 14.5d N [id number] Ea1 - [id number] Opht halmology Left: ISAURA 10/23/2022 [id number] / Implanted: Qty: 1 on 07/22/2020 by Jm Damico MD at [facility]IOR [id number] / CHAMBER 2022-10-23 Iol Pre-Load Tecantelmo Simp 15.0d N [id number] Ea1 - [id number] Ophthalmology Right: EYE ISAURA 03/31/2023 [id number] / Implanted: Qty: 1 on 07/29/2020 by Mitesh milligan, Jm Rosario MD at [facility] [id number] / 2023-03-31 documented as of this encounter Procedures Procedure Name Priority Date/Time Associated Diagnosis Comme nts GLUCOSE BY METER, Routine 03/05/2021 11:30 Result s for this POCT AM CDT procedure are i n the results section. GLUCOSE BY METER, Routine 03/05/2021 5:37 Result s for this POCT AM CDT procedure are i n the results section. GLUCOSE BY METER, Routine 03/04/2021 9:09 Result s for this POCT PM CDT procedure are i n the results section. GLUCOSE BY METER, Routine 03/04/2021 4:55 Result s for this POCT PM CDT procedure are i n the results section. GLUCOSE BY METER, Routine 03/04/2021 11:10 Result s for this POCT AM CDT procedure are i n the results section. GLUCOSE BY METER, Routine 03/04/2021 4:57 Result s for this POCT AM CDT procedure are i n the results section. GLUCOSE BY METER, Routine 03/03/2021 8:49 Result s for this POCT PM CDT procedure are i n the results section. GLUCOSE BY METER, Routine 03/03/2021 4:36 Result s for this POCT PM CDT procedure are i n the results section. GLUCOSE BY METER, Routine 03/03/2021 11:20 Result s for this POCT AM CDT procedure are i n the results section. BASIC METABOLIC PANEL Routine 03/03/2021 6:51 Re sults for this AM CDT procedure are i n the results section. GLUCOSE BY METER, Routine 03/03/2021 5:29 Result s for this POCT AM CDT procedure are i n the results section. GLUCOSE BY METER, Routine 03/02/2021 5:03 Result s for this POCT PM CDT procedure are i n the results section. GLUCOSE BY METER, Routine 03/02/2021 10:58 Result s for this POCT AM CDT procedure are i n the results section. LAB ONLY-COMPLETE Routine 03/02/2021 8:26 Result s for this BLOOD COUNT WITH AM CDT procedure a re in DIFFERENTIAL the results section. PHOSPHORUS Routine 03/02/2021 8:26 Results for this AM CDT procedure are i n the results section. MAGNESIUM Routine 03/02/2021 8:26 Results for this AM CDT procedure are i n the results section. COMPREHENSIVE Routine 03/02/2021 8:26 Results fo r this METABOLIC PANEL AM CDT procedure ar e in the results section. LAB ONLY-COMPLETE Routine 03/02/2021 8:26 Result s for this BLOOD COUNT WITH AM CDT procedure a re in DIFFERENTIAL the results section. GLUCOSE BY METER, Routine 03/02/2021 5:15 Result s for this POCT AM CDT procedure are i n the results section. GLUCOSE BY METER, Routine 03/01/2021 9:52 Result s for this POCT PM CDT procedure are i n the results section. GLUCOSE BY METER, Routine 03/01/2021 4:59 Result s for this POCT PM CDT procedure are i n the results section. GLUCOSE BY METER, Routine 03/01/2021 11:10 Result s for this POCT AM CDT procedure are i n the results section. XRAY C-ARM Routine 03/01/2021 10:24 Results for this AM CDT procedure are i n the results section. GLUCOSE BY METER, Routine 03/01/2021 9:48 Result s for this POCT AM CDT procedure are i n the results section. GLUCOSE BY METER, Routine 03/01/2021 9:05 Result s for this POCT AM CDT procedure are i n the results section. 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 documented in this encounter Results GLUCOSE BY METER, POCT (03/05/2021 11:30 AM CDT) Pathologist Sig nature Glucose POC 352 (H) 70 - 99 mg/dL [facility] POINT OF CARE TESTING Specimen Blood - Blood specimen (specimen) Performing Organization Address City/State/ZIP Code Phon e Number [facility] [address] [place] [address] 581 04 OF CARE TESTING GLUCOSE BY METER, POCT (03/05/2021 5:37 AM CDT) Pathologist Sig nature Glucose POC 208 (H) 70 - 99 mg/dL [facility] POINT OF CARE TESTING Specimen Blood - Blood specimen (specimen) Performing Organization Address City/State/ZIP Code Phon e Number [facility] [address] [place] [address] 581 04 OF CARE TESTING GLUCOSE BY METER, POCT (03/04/2021 9:09 PM CDT) Pathologist Sig nature Glucose POC 253 (H) 70 - 99 mg/dL [facility] POINT OF CARE TESTING Specimen Blood - Blood specimen (specimen) Performing Organization Address City/State/ZIP Code Phon e Number [facility] [address] [place] [address] 581 04 OF CARE TESTING GLUCOSE BY METER, POCT (03/04/2021 4:55 PM CDT) Pathologist Sig nature Glucose POC 143 (H) 70 - 99 mg/dL [facility] POINT OF CARE TESTING Specimen Blood - Blood specimen (specimen) Performing Organization Address City/State/ZIP Code Phon e Number [address] 581 04 OF CARE TESTING GLUCOSE BY METER, POCT (03/04/2021 11:10 AM CDT) Pathologist Sig nature Glucose POC 328 (H) 70 - 99 mg/dL [facility] POINT OF CARE TESTING Specimen Blood - Blood specimen (specimen) Performing Organization Address City/State/ZIP Code Phon e Number [facility] [address] [place] [address] 581 04 OF CARE TESTING GLUCOSE BY METER, POCT (03/04/2021 4:57 AM CDT) Pathologist Sig nature Glucose POC 193 (H) 70 - 99 mg/dL [facility] POINT OF CARE TESTING Specimen Blood - Blood specimen (specimen) Performing Organization Address City/[facility]/ZIP Code Phon e Number [facility] [address] [place] [address] 58 04 OF CARE TESTING GLUCOSE BY METER, POCT (03/03/2021 8:49 PM CDT) Pathologist Sig nature Glucose POC 193 (H) 70 - 99 mg/dL [facility] POINT OF CARE TESTING Specimen Blood - Blood specimen (specimen) Performing Organization Address City/[facility]/ZIP Code Phon e Number [address] 58 04 OF CARE TESTING GLUCOSE BY METER, POCT (03/03/2021 4:36 PM CDT) Pathologist Sig nature Glucose POC 278 (H) 70 - 99 mg/dL [facility] POINT OF CARE TESTING Specimen Blood - Blood specimen (specimen) Performing Organization Address City/[facility]/ZIP Code Phon e Number [place] [address] 04 OF CARE TESTING GLUCOSE BY METER, POCT (03/03/2021 11:20 AM CDT) Pathologist Sig nature Glucose POC 215 (H) 70 - 99 mg/dL [facility] POINT OF CARE TESTING Specimen Blood - Blood specimen (specimen) Performing Organization Address City/[facility]/ZIP Code Phon e Number [place] [address] 04 OF CARE TESTING BASIC METABOLIC PANEL (03/03/2021 6:51 AM CDT) Pathologist Sig nature Glucose 188 (H) 70 - 100 mg/dL [place] [address] [facility] BUN 14 6 - 22 mg/dL [place] [address] [facility] Creatinine 1.03 0.60 - 1.10 [place] [address] [facility] mg/dL BUN/Creatinine Ratio 13.6 10.0 - 25.[address] Sodium 137 135 - 145 meq/L [place] [address] [facility] Potassium 4.7 3.5 - 5.3 meq/L [address] Chloride 101 99 - 110 meq/L [place] [address] [facility] CO2 27 20 - 29 meq/L [facility] Anion Gap with K 14 6 - 20 meq/L [address] Calcium 9.2 8.5 - 10.5 mg/dL [address] Age [address] eGFR Non- 54 (L) >=[address] Tongan mL/min/1.73m2 eGFR 67 >=[address] mL/min/1.73m2 Specimen Blood - Blood specimen (specimen) Performing Organization Address [facility]/ZIP Code Phon e Number [address] [place] [address] GLUCOSE BY METER, POCT (03/03/2021 5:29 AM CDT) Pathologist Sig nature Glucose POC 210 (H) 70 - 99 mg/dL [facility] POINT OF CARE TESTING Specimen Blood - Blood specimen (specimen) Performing Organization Address [facility]/ZIP Code Phon e Number [facility] [address] [place] [address] 581 04 OF CARE TESTING GLUCOSE BY METER, POCT (03/02/2021 5:03 PM CDT) Pathologist Sig nature Glucose POC 147 (H) 70 - 99 mg/dL [facility] POINT OF CARE TESTING Specimen Blood - Blood specimen (specimen) Performing Organization Address [facility]/ZIP Code Phon e Number [facility] [address] [place] [address] 581 04 OF CARE TESTING GLUCOSE BY METER, POCT (03/02/2021 10:58 AM CDT) Pathologist Sig nature Glucose POC 174 (H) 70 - 99 mg/dL [facility] POINT OF CARE TESTING Specimen Blood - Blood specimen (specimen) Performing Organization Address [facility]/ZIP Code Phon e Number [facility] [address] [place] [address] 581 04 OF CARE TESTING LAB ONLY-COMPLETE BLOOD COUNT WITH DIFFERENTIAL (03/02/2021 8:26 AM CDT) Pathologist Sig nature WBC 10.2 4.0 - 11.0 K/uL [address] RBC 3.47 (L) 3.80 - 5.30 [place] [address] [facility] M/uL Hemoglobin 9.3 (L) 11.5 - 15.[address] g/dL Hematocrit 28.8 (L) 35.0 - 45.0 % [address] MCV 83.0 80.0 - 98.[address] MCH 26.8 25.5 - 34.[address] MCHC 32.3 31.5 - 36.[address] g/dL RDW-CV 14.3 11.5 - 15.5 % [address] RDW-SD 43.0 35.5 - 50.[address] Platelet Count 232 140 - 400 K/uL [address] MPV 9.9 8.5 - 12.[address] Seg Neut Absolute 7.0 1.8 - 8.0 K/uL [address] Lymphocytes Absolute 2.0 0.8 - 4.1 K/uL [place] [address] [facility] C Monocytes Absolute 0.8 0.0 - 1.0 K/uL [address] Eosinophils Absolute 0.2 0.0 - 0.7 K/uL [place] [address] [facility] C Basophil Absolute 0.0 0.0 - 0.2 K/uL [address] Immature Granulocyte 0.07 (H) 0.00 - 0.[address] Absolute K/uL Neutrophils Abs. 7,000 /uL [address] (Segs and Bands) Neutrophils Percent 69.1 % [address] Lymphocytes Percent 20.1 % [address] Monocytes Percent 7.6 % [address] Immature Granulocyte 0.7 % [address] Percent Eosinophils Percent 2.1 % [address] Basophil Percent 0.4 % [address] Nucleated RBC 0 /[address] Specimen Blood - Blood specimen (specimen) Performing Organization Address City/State/ZIP Code Phon e Number [address] [place] [address] PHOSPHORUS (03/02/2021 8:26 AM CDT) Pathologist Sig nature Phosphorus 4.8 (H) 2.5 - 4.5 mg/dL [address] Specimen Blood - Blood specimen (specimen) Performing Organization Address City/[facility] Phon e Number [place] [address] [facility] [address], [place] [address] COMPREHENSIVE METABOLIC PANEL (03/02/2021 8:26 AM CDT) Pathologist Sig nature Glucose 153 (H) 70 - 100 mg/dL [address] BUN 20 6 - 22 mg/dL [address] Creatinine 1.33 (H) 0.60 - 1.[address] mg/dL BUN/Creatinine Ratio 15.0 10.0 - 25.[address] Sodium 134 (L) 135 - 145 meq/L [address] Potassium 4.9 3.5 - 5.3 meq/L [address] Chloride 99 99 - 110 meq/L [address] CO2 26 20 - 29 meq/L [address] Anion Gap with K 14 6 - 20 meq/L [address] Calcium 8.5 8.5 - 10.[address] mg/dL Protein Total 6.0 6.0 - 8.2 g/dL [address] Albumin 3.4 (L) 3.5 - 5.0 g/dL [address] Alkaline Phosphatase 57 30 - 150 U/L [address] AST - SGOT 21 0 - 35 U/L [address] ALT - SGPT 10 0 - 55 U/L [address] Bilirubin Total 0.3 0.2 - 1.2 mg/dL [address] Corrected Calcium 9.0 8.5 - 10.[address] mg/dL Age [address] eGFR Non- 40 (L) >=[address] Tongan mL/min/1.73m2 eGFR 49 (L) >=[address] mL/min/1.73m2 Specimen Blood - Blood specimen (specimen) Performing Organization Address City/[facility] Phon e Number [place] [address] [facility] [address] [place] [address] MAGNESIUM (03/02/2021 8:26 AM CDT) Pathologist Sig nature Magnesium 1.7 (L) 1.8 - 2.4 mg/dL [facility] Specimen Blood - Blood specimen (specimen) Performing Organization Address City/[facility]/ZIP Code Phon e Number [place] [facility] [facility] [address] [place] [address], [place] [address] GLUCOSE BY METER, POCT (03/02/2021 5:15 AM CDT) Pathologist Sig nature Glucose POC 199 (H) 70 - 99 mg/dL [facility] POINT OF CARE TESTING Specimen Blood - Blood specimen (specimen) Performing Organization Address City/State/ZIP Code Phon e Number [facility] [address], [place] 5[address] 04 OF CARE TESTING GLUCOSE BY METER, POCT (03/01/2021 9:52 PM CDT) Pathologist Sig nature Glucose POC 172 (H) 70 - 99 mg/dL [facility] POINT OF CARE TESTING Specimen Blood - Blood specimen (specimen) Performing Organization Address [facility]/ZIP Code Phon e Number [facility] [address] [place] [address], [place] 5[address] 04 OF CARE TESTING GLUCOSE BY METER, POCT (03/01/2021 4:59 PM CDT) Pathologist Sig nature Glucose POC 192 (H) 70 - 99 mg/dL [facility] POINT OF CARE TESTING Specimen Blood - Blood specimen (specimen) Performing Organization Address City/[facility]/ZIP Code Phon e Number [facility] [address] [place] [address], [place] 5[address] 04 OF CARE TESTING GLUCOSE BY METER, POCT (03/01/2021 11:10 AM CDT) Pathologist Sig nature Glucose POC 187 (H) 70 - 99 mg/dL [facility] POINT OF CARE TESTING Specimen Blood - Blood specimen (specimen) Performing Organization Address City/[facility]/ZIP Code Phon e Number [facility] [address] [place] [address] 581 04 OF CARE TESTING XRAY C-ARM LESS THAN ONE HR (03/01/2021 10:24 AM CDT) Specimen Narrative Performed At Fluoroscopic image(s) submitted. Imaging [facility] assistance provided by Radiology. Performing Organization Address City/State/ZIP Code Phon e Number [facility] [address] [place] [address] RADIOLOGY GLUCOSE BY METER, POCT (03/01/2021 9:48 AM CDT) Pathologist Sig nature Glucose POC 160 (H) 70 - 99 mg/dL [facility] POINT OF CARE TESTING Specimen Blood - Blood specimen (specimen) Performing Organization Address City/[facility]/ZIP Code Phon e Number [facility] [address] [place] [address] 58 04 OF CARE TESTING GLUCOSE BY METER, POCT (03/01/2021 9:05 AM CDT) Pathologist Sig nature Glucose POC 184 (H) 70 - 99 mg/dL [facility] POINT OF CARE TESTING Specimen Blood - Blood specimen (specimen) Performing Organization Address City/State/ZIP Code Phon e Number [facility] [address] [place] [address] 58 04 OF CARE TESTING GLUCOSE BY METER, POCT (03/01/2021 6:01 AM CDT) Pathologist Sig nature Glucose POC 149 (H) 70 - 99 mg/dL [facility] POINT OF CARE TESTING Specimen Blood - Blood specimen (specimen) Performing Organization Address [facility]/ZIP [facility] Phon e Number [place] [address] 04 OF CARE TESTING documented in this encounter Visit Diagnoses Diagnosis S/P lumbar laminectomy - Primary Other postprocedural status Spinal stenosis Spinal stenosis, unspecified region othe r than cervical Lumbar radiculopathy Thoracic or lumbosacral neuritis or radi culitis, unspecified Constipation due to opioid therapy documented in this encounter Discharge Diagnoses Not on filedocumented in this encounter Administered Medications Medication Order MAR Action Action Date Dose Rate Site acetaminophen (TYLENOL) tablet Given 03/05/2021 5:42 AM CDT 650 mg 650 mg 650 mg, Oral, Every six hours, First dose on Mon03/01/21 at 1800, Until Discontinued, Post - Op, Alternate with tramadol (Ultram), IF ORDERED; Total dose of acetaminophen from all acetaminophen containing products should not exceed 4 grams (4,000 mg) per day. Given 03/05/2021 12:04 AM CDT 650 mg Given 03/04/2021 5:02 PM CDT 650 mg bisacodyl (DULCOLAX) suppository 10 mg 10 mg, Rectal, Daily, First dose on Mon03/04/21 at 0900, Until Discontinued, Post - Op, Hold if has had an adequate BM in last 24 hours carbohydrate 15 g 15 g, Oral, PRN per parameter, Starting on Mon03/01/21 at 1541, Until Discontinued, low blood glucose, Give 15 grams of carb ohydrate if blood glucose is less than 70 mg/dL, patient is responsive and able to take food or oral meds. Recheck blood glucose in 15 minutes. Repeat 1 time and call MD. If recheck is greater than 70 mg/dL and able to take food or oral meds, give 15 gram carbohydrate if meal or snack due in more than an hour. Serve meal or snack if due in less than 1 hour. See hypoglycemia treatment on cardex. S ources of 15 grams carbohydrate: a. 4 oz of fruit juice (Do NOT give orange juice to dialysis p atients due to risk of hyperkalemia) or b. 4 oz of soda pop (NOT diet) or c . 1 tablespoon of honey ceFAZolin (ANCEF) 2000 mg/20 mL sterile Given 03/05/2021 9:37 A M CDT 2,000 mg water IV syringe 2,000 mg, IV, Every eight hours, First dose on Mon03/01/21 at 1435, Until Discontinued, 20 mL, Post - Op, Discontinue antibiotic when drain removed. Administer as IV push over 4 minutes. Given 03/05/2021 12:02 AM CDT 2,000 mg Given 03/04/2021 5:02 PM CDT 2,000 mg citalopram (celeXA) tablet 40 mg Given 03/05/2021 9:36 AM CDT 40 mg 40 mg, Oral, DAILY, First dose on Mon03/02/21 at 0900, Until Discontinued Given 03/04/2021 8:27 AM CDT 40 mg Given 03/03/2021 7:45 AM CDT 40 mg cyanocobalamin (VITAMIN B-12 DOTS) Given 03/05/2021 9:36 AM CDT 1,000 mcg sublingual tablet 1,000 mcg 1,000 mcg, Oral, DAILY, First dose on Mon03/02/21 at 0900, Until Discontinued Given 03/04/2021 8:27 AM CDT 1,000 mcg Given 03/03/2021 7:44 AM CDT 1,000 mcg dextrose 50% IV solution 50 mL 50 mL (25 g), IV, PRN per parameter, Starting on Mon at 1541, Until Discontinued, low blood glucose, 50 mL, Give if blood glucose is less than 70 mg/dL, patient is unresponsive or NPO, a nd has IV access. Recheck blood glucose in 15 minutes and call MD. Repeat dose if r echeck less than 70 mg/dL and call MD. If recheck is greater than 70 mg/dL and abl e to take food or oral meds, give 15 gram carbohydrate if meal or snack due in mor e than an hour. Serve meal or snack if due in less than 1 hour. See hypoglycemia treatment on car dex. docusate sodium (COLACE) capsule 100 mg Given 03/05/2021 9:36 AM CDT 100 mg 100 mg, Oral, Two times a day, First dose on Mon03/01/21 at 2100, Until Discontinued, Post - Op, Hold for loose stools Given 03/04/2021 9:41 PM CDT 100 mg Given 03/04/2021 8:28 AM CDT 100 mg fentaNYL 100 mcg/2 mL preservative free injection solution 50 mcg 50 mcg, IV, Every one hour prn, Starting on Mon03/01/21 at 1433, Until Discontinued, severe pain, 1 mL, Post - Op, If pain un relieved by oxycodone For pain scale 7 or greater or pain not relieved by medicati ons for pain scale 4 to 6; may administer less potent prescribed medication based on patient request per the organization's medication management policy. gabapentin (NEURONTIN) capsule 100 mg Given 03/05/2021 9:36 AM CDT 100 mg 100 mg, Oral, Three times a day, 13 doses, First dose (after last modification) on Mon03/02/21 at 1500, Last dose on Mon03/06/21 at 1500, Post - Op Given 03/04/2021 9:41 PM CDT 100 mg Given 03/04/2021 2:43 PM CDT 100 mg glucagon for injection 1 mg vial 1 mg 1 mg, Intramuscular, PRN per parameter, Starting on n 03/01/21 at 1541, Until Discontinued, low blood glucose, Give if blood glucose less than 70 mg/dL, patient is unresponsive or NPO, and has no IV ac cess. Establish IV access. Recheck blood glucose in 15 minutes and call MD. If r echeck is greater than 70 mg/dL and able to take food or oral meds, give 15 gram car bohydrate if meal or snack due in more than an hour. Serve meals or snack if due in less than 1 ho ur. See hypoglycemia treatment on cardex. Reconstitute vial with 1 mL of sterile water for injection for reconstitution for a final concentra tion of 1 mg/mL. Shake vial gently. Use immediately and discard unused portion. Reconstitute with 1 mL of sterile water for injection to yield 1 mg/mL. Shake vial gently. Use immediately and discard unused portion. glucose chewable tablet 16 g 16 g (4 tablet), Oral, PRN per parameter, Starting on 03/01/21 at 1541, Until Discontinued, low blood glucose, Chew before swallowin g. Give 15 gram of carbohydrate if blood glucose is less th an 70 mg/dL, patient is responsive and able to take food or oral meds. Recheck blood glucose in 15 minutes. Repeat 15 gram carbohydrate if recheck is less than 70 mg/dL and call MD. If recheck is greater than 70 mg/dL and able to take food or o ral meds, give 15 gram carbohydrate if meal or snack due in more than an hour. Serve meal or snack if due in less than 1 hour. See hypoglycemia treatment on cardex. S ources of 15 grams carbohydrate: a. 4 oz of fruit juice (Do NOT give orange juice to dialysis p atients due to risk of hyperkalemia) or b. 4 oz of soda pop (NOT diet) or c . 1 tablespoon of honey heparin (porcine) injection solution Given 03/05/2021 5:42 AM C DT 5,000 Units 5,000 Units 5,000 Units, Subcutaneous, Every eight hours, First dose on Mon03/03/21 at 1400, Until Discontinued, 1 mL Given 03/04/2021 9:41 PM CDT 5,000 Units Given 03/04/2021 1:10 PM CDT 5,000 Units insulin aspart (NovoLOG) SQ correction Given 03/05/2021 11:47 AM CDT 8 Units scale (Adult) 2-8 Units, Subcutaneous, Three times a day, First dose on Mon03/01/21 at 1730, Until Discontinued, 0.08 mL, Give this dose whether patient is eating or patient is NPO LOW DOSE insulin aspart (NovoLOG) subcutaneous correction scale Premeal Blood Glucose = Insulin Dose 150-199 2 units 200-249 3 units 250-299 5 units 300-349 7 units Over 349 8 units Given 03/05/2021 5:42 AM CDT 3 Units Given 03/04/2021 1:08 PM CDT 7 Units insulin glargine (LANTUS) SQ injection Given 03/05/2021 9:42 AM CDT 20 Units 20 Units, Subcutaneous, Two times a day, First dose (after last modification) on Mon03/04/21 at 2100, Until Discontinued, 0.2 mL, Blood Glucose greater than or equal to 100 mg/dL - Do Not Hold If Blood Glucose LESS than 100 mg/dL, if patient changed to NPO, or if tube feedings stopped - Immediately notify provider before administration. Given 03/04/2021 9:44 PM CDT 20 Units lactulose oral solution (10 gm/15 mL) 30 mL Given 03/05/2021 9:36 AM CDT 30 mL 30 mL, Oral, Daily, First dose on Mon03/03/21 at 0900, Until Discontinued, 30 mL, Post - Op, Hold if has had an adequate BM in last 24 hours Given 03/04/2021 8:26 AM CDT 30 mL Given 03/03/2021 7:43 AM CDT 30 mL nalOXone (NARCAN) injection solution (vi al) 0.2 mg 0.2 mg, Injection, Every two minutes prn, Starting on Mon03/01/21 at 1433, Until Discontinued, other (Specify), opioid induced respirat ory depression - PARTIAL reversal, 0.5 mL, Post - Op, PARTIAL REV ERSAL/RESPIRATORY DEPRESSION If respiratory rate less than 8/minute - call rapid response and admi nister (until respiratory rate increases to 10/minute). Give IV (preferred), IM or SUBQ nalOXone (NARCAN) injection solution (vi al) 0.4 mg 0.4 mg, Injection, Every two minutes prn, Starting on Mon03/01/21 at 1433, Until Discontinued, other (Specify), opioid in duced respiratory arrest - FULL reversal, 1 mL, Post - Op, FULL REVERSAL/RESPIRATORY ARREST If patient is not breathing - call CODE BLUE and administer. Give IV (preferred), IM or SUBQ ondansetron (ZOFRAN) injection solution 4 mg 4 mg, IV, Every four hours prn, Starting on Mon03/01/21 at 1433, Until Discontinued, nausea, vomiting, 2 mL, Post - Op, Use F IRST. If ineffective after 15 minutes use haloperidol. If preference is to further dilute for IV administration: First draw up patient-specific dose, then dilute to 10 mL with 0. 9% sodium chloride. oxyCODONE (OXY-IR) tablet 5-10 mg Given 03/04/2021 9:44 PM CDT 5 mg 5-10 mg, Oral, Every four hours prn, Starting on Mon03/01/21 at 1433, Until Discontinued, moderate pain, severe pain, Post - Op, For patients with MODERATE pain rating of 4-6, give oxyCODONE 5 mg every 4 hours PRN. For patients with SEVERE pain rating of 7 or greater, give oxyCODONE 10 mg every 4 hours PRN. May administer less potent prescribed medication based on patient request per the organization's medication management policy. Given 03/03/2021 10:29 PM CDT 5 mg Given 03/03/2021 8:53 AM CDT 5 mg polyethylene glycol (MIRALAX) packet 1 Given 03/05/2021 9:35 AM CDT 1 packet packet 1 packet, Oral, Daily, First dose on Mon03/02/21 at 0900, Until Discontinued, Post - Op, Hold for loose stools. Dissolve in 8 ounces of water, juice, soda, coffee, tea Do NOT give if patient on thickened liquids. Contact provider for alternative if needed. Given 03/04/2021 8:24 AM CDT 1 packet Given 03/03/2021 7:41 AM CDT 1 packet rosuvastatin (CRESTOR) tablet 10 mg Given 03/04/2021 9:41 PM CDT 10 mg 10 mg, Oral, Bedtime, First dose on Mon03/02/21 at 2100, Until Discontinued Given 03/03/2021 10:29 PM CDT 10 mg Given 03/02/2021 9:31 PM CDT 10 mg senna-docusate sodium Given 03/05/2021 9:36 AM CDT 1 tablet (SENOKOT-S;PERICOLACE) tablet 1 tablet 1 tablet, Oral, Two times a day, First dose on Mon03/01/21 at 2100, Until Discontinued, Post - Op Given 03/04/2021 9:41 PM CDT 1 tablet Given 03/04/2021 8:26 AM CDT 1 tablet sodium chloride 0.9% flush (adult) 10 mL Given 03/05/2021 9:37 AM CDT 10 mL 10 mL, IV, Two times a day and prn, First dose on Mon03/01/21 at 0900, Until Discontinued, 10 mL, Active Now, Flush PIV line as scheduled and as often as necessary before and after meds. Use a push / pause technique when flushing to create turbulence. Given 03/04/2021 9:42 PM CDT 10 mL Given 03/04/2021 8:30 AM CDT 10 mL sodium chloride 0.9% flush (adult) 10 mL Given 03/05/2021 9:37 AM CDT 10 mL 10 mL, IV, Two times a day and prn, First dose on Mon03/01/21 at 0900, Until Discontinued, 10 mL, Continue through discharge, Flush PIV line as scheduled and as often as necessary before and after meds. Use a push / pause technique when flushing to create turbulence. Given 03/04/2021 9:41 PM CDT 10 mL Given 03/04/2021 8:29 AM CDT 10 mL tiZANidine (ZANAFLEX) tablet 2 mg Given 03/05/2021 9:36 AM CDT 2 mg 2 mg, Oral, Three times a day, 15 doses, First dose on Mon03/01/21 at 1500, Last dose on Mon03/06/21 at 0900, Post - Op Given 03/04/2021 9:41 PM CDT 2 mg Given 03/04/2021 2:43 PM CDT 2 mg vitamin D3 (cholecalciferol) tablet 25 m cg Given 03/05/2021 9:36 AM CDT 25 mcg 25 mcg, Oral, DAILY, First dose on Mon03/02/21 at 0900, Until Discontinued Given 03/04/2021 8:26 AM CDT 25 mcg Given 03/03/2021 7:44 AM CDT 25 mcg Medication Order MAR Action Action Date Dose Rate Site acetaminophen (TYLENOL) tablet Given 03/01/2021 6:21 AM CDT 1,0 00 mg 1,000 mg 1,000 mg, Oral, Pre-op, 1 dose, On Mon03/01/21 at 0715, Pre - Op, Adult patients: Total dose of acetaminophen from all acetaminophen containing products should not exceed 4 grams (4000 mg) per day. Pediatric Patients 0 - 3 months: Maximum of 60 mg/kg/24 hours of acetaminophen. Pediatric Patients older than 3 months: Maximum of 75 mg/kg/24 hours of acetaminophen (Never exceeding 4 grams/day). gabapentin (NEURONTIN) capsule 300 mg Given 03/01/2021 6:21 AM CDT 300 mg 300 mg, Oral, Pre-op, 1 dose, On Mon03/01/21 at 0715, Pre - Op, Do not give to patients on hemodialysis. gabapentin (NEURONTIN) capsule 300 mg Given 03/02/2021 8:02 AM CDT 300 mg 300 mg, Oral, Three times a day, 15 doses, First dose on Mon03/01/21 at 2100, Last dose on Mon03/06/21 at 1500, Post - Op Given 03/01/2021 9:39 PM CDT 300 mg insulin glargine (LANTUS) SQ injection Given 03/04/2021 8:29 AM CDT 15 Units 15 Units, Subcutaneous, Two times a day, First dose on Mon03/01/21 at 2100, Until Discontinued, 0.15 mL, Blood Glucose greater than or equal to 100 mg/dL - Do Not Hold If Blood Glucose LESS than 100 mg/dL, if patient changed to NPO, or if tube feedings stopped - Immediately notify provider before administration. Given 03/03/2021 10:37 PM CDT 15 Units Given 03/03/2021 7:45 AM CDT 15 Units lactated ringers IV solution New Bag 03/01/2021 9:36 AM CDT IV, at 25 mL/hr, Continuous, Starting on Mon03/01/21 at 0620, Until Mon03/01/21 at 1106, 1,000 mL, Pre - Op Now New Bag/Tubing 03/01/2021 6:21 AM CDT 25 mL/hr lactated ringers IV solution Already Infusing 03/01/2021 11:06 AM CDT 125 mL/hr IV, at 125 mL/hr, Continuous, Starting on Mon03/01/21 at 1110, Until Mon03/01/21 at 1430, 1,000 mL, PACU, TKO current fluids if patient is going to Day Unit / ARU and tolerating PO fluids without nausea. lactated ringers IV solution New Bag 03/02/2021 10:45 AM CDT 100 mL/hr IV, at 100 mL/hr, Continuous, Starting on Mon03/02/21 at 1030, Until Mon03/02/21 at 2029, 1,000 mL magnesium sulfate 2 gm/50 mL IV solution 2 g Given 03/02/2021 5:00 PM CDT 2 g 2 g, IV, Now, 1 dose, On Mon03/02/21 at 1700, 50 mL PHENYLephrine Rate Change 03/01/2021 1:18 PM 0.1 mcg/kg/min 5.1 mL/h r (FRIDA-SYNEPHRINE) in sod CDT chloride 0.9% (100 mcg/mL) infusion 0-2 mcg/kg/min 85.5 kg (0-102.6 mL/hr), IV, at 0-102.6 mL/hr, Titrate, Starting on Mon03/01/21 at 1205, Until Mon03/01/21 at 1430, 250 mL, PACU, Initiate the infusion at 0.1-0.5 mcg/kg/min Increase or decrease the infusion by 0.1-0.5 mcg/kg/min every 5 minutes to keep SBP above 100mmHg When discontinuing or weaning, decrease dose gradually by 0.1-0.5 mcg/kg/minute every 5 minutes as tolerated to prevent severe hypotension Document titrations in One Chart (MAR or I&O Flowsheet medication group) Rate Change 03/01/2021 12:30 PM CDT 0.2 mcg/kg/min 10.3 mL/hr Rate Change 03/01/2021 12:16 PM CDT 0.1 mcg/kg/min 5.1 mL/hr scopolamine Applied 03/01/2021 6:21 AM 1 patch Behi nd Left Ear (TRANSDERM-SCOP) patch 1 CDT Transdermal patch 1 patch, Transdermal, Pre-op, 1 dose, On Mon03/01/21 at 0615, Administer over 24 Hours documented in this encounter Active and Recently Administered Medications Times are shown in CDT. Medication Order 03/03/2021 03/04/2021 03/05/2021 acetaminophen (TYLENOL) tablet 650 mg 0105 (Given - Pr ovider: Danica Castle RN)0535 (Given - Provider: Danica Castle RN)1132 (Given - Provider: Citlali Church, SALO)1755 (Given - Provider: Citlali Church RN)2227 (Given - Pr ovider: Danica Castle RN) 0607 (Given - Provider: Danica Castle RN)1309 (Given - Provider: Citlali Church RN)1702 (Given - Provider: Citlali Church RN) 0004 (Given - Provider: Libertad mccall RN)0542 (Given - Provider: Libertad Doss RN)1200 (Due)1800 (Due) 650 mg, Oral, Every six hours, First dos e on Mon03/01/21 at 1800, Until Discontinued, Post - Op, Alternate with tramadol (Ultram), IF ORDERED; Total dose of acetaminophen from all acetaminophen contain ing products should not exceed 4 grams (4,000 mg) per day. bisacodyl (DULCOLAX) suppository 10 mg 0 830 (Refused - Provider: Citlali Church RN) 0937 (Refused - Provider: Luis Fernando arias RN) 10 mg, Rectal, Daily, First dose on Rita 03/04/21 at 0900, Until Discontinued, Post - Op, Hold if has had an adequate BM in last 24 hours ceFAZolin (ANCEF) 2000 mg/20 mL sterile water IV syrin ge 0106 (Given - Provider: Danica Castle RN)0747 (Given - Provider: Citlali Church RN)1643 (Given - Provider: Citlali Church RN)2228 (Given - Provider: Danica Castle RN) 0829 (Given - Provider: Citlali paredes RN)1702 (Given - Provider: Citlali Church RN) 0002 (Given - Provider: Libertad mccall RN)0937 (Given - Provider: Luis Fernando Rodriguez, SALO)1600 (Due) 2,000 mg, IV, Every eight hours, First d ose on Mon03/01/21 at 1435, Until Discontinued, 20 mL, Post - Op, Discontinue antibiotic when drain removed. Administer as IV push over 4 minutes. citalopram (celeXA) tablet 40 mg 0745 (Given - Provide r: Citlali Church RN) 0827 (Given - Provider: Citlali Church RN) 0936 (Given - Provider: Luis Fernando Rodriguez RN) 40 mg, Oral, DAILY, First dose on Mon03/02/21 at 0900, Until Dis continued cyanocobalamin (VITAMIN B-12 DOTS) sublingual tablet 1 ,000 mcg 0744 (Given - Provider: Citlali Church RN) 0827 (Given - Provider: Citlali Church RN) 0936 (Given - Provider: Luis Fernando giang RN) 1,000 mcg, Oral, DAILY, First dose on Mon03/02/21 at 0900, Until Discontinued docusate sodium (COLACE) capsule 100 mg 0853 (Given - Provider: Citlali Church RN)2229 (Given - Provider: Danica Castle RN) 0828 (Given - Provider: Citlali Church RN)214 (Given - Provider: Danica Castle RN) 0936 (Given - Provider: Luis Fernando Rodriguez, SALO)2100 (Due) 100 mg, Oral, Two times a day, First dos e on Mon03/01/21 at 2100, Until Discontinued, Post - Op, Hold for loose stools gabapentin (NEURONTIN) capsule 100 mg 0855 (Given - Pr ovider: Citlali Church RN)1431 (Given - Provider: Citlali Church RN)222 (Given - Provider: Danica Castle RN) 0828 (Given - Provider: Citlali paredes RN)1443 (Given - Provider: Citlali Church RN)2141 (Given - Provider: Danica Castle RN) 0936 (Given - Provider: Luis Fernando giang RN)1500 (Due)2100 (Due) 100 mg, Oral, Three times a day, 13 dose s, First dose (after last modification) on Mon03/02/21 at 1500, Last dose on Mon03/06/21 at 1500, Post - Op heparin (porcine) injection solution 5,000 Units 1431 (Given - Provider: Citlali Church RN)2228 (Given - Provider: Danica Castle RN) 0607 (Given - Provider: Danica Castle RN)1310 (Given - Provider: Citlali Church RN)2141 (Given - Provider: Danica Castle RN) 0542 (Given - Provider: Libertad Doss RN)1400 (Due)2200 (Due) 5,000 Units, Subcutaneous, Every eight h ours, First dose on Mon03/03/21 at 1400, Until Discontinued, 1 mL insulin aspart (NovoLOG) SQ correction scale (Adult) 0 536 (Given - Provider: Danica Castle RN)1132 (Given - Provider: Citlali Church RN - Comment: BG 215)1755 (Given - Provider: Citlali Church RN - Comment: BG 278) 0617 (Given - Provider: Danica Castle RN)1308 (Given - Provider: Citlali Church RN - Comment: BG 328)1725 (Not Indicated - Provider: Ryanne Damon RN) 0542 (Given - Provider: Libertad mccall RN)1147 (Given - Provider: Luis Fernando Rodriguez RN)1730 (Due) 2-8 Units, Subcutaneous, Three times a d ay, First dose on Mon03/01/21 at 1730, Until Discontinued, 0.08 mL, Give this dose whether patient is eating or patient is NPO LOW DOSE insulin aspart (NovoLO G) subcutaneous correction scale Premea l Blood Glucose = Insulin Dose 150-199 2 units 200-249 3 units 250-299 5 units 300-349 7 units Over 349 8 units insulin glargine (LANTUS) SQ injection (CANCELED) 0745 (Given - Provider: Citlali Cuhrch RN)2237 (Given - Provider: Danica Castle, RN) 0829 (Given - Provider: Citlali Church RN) 15 Units, Subcutaneous, Two times a day, First dose on Mon03/01/21 at 2100, Until Discontinued, 0.15 mL, Blood Glucose greater than or equal to 100 mg/dL - Do Not Hold If Blood Glucose LESS than 100 mg/ dL, if patient changed to NPO, or if tub e feedings stopped - Immediately notify provider before administration. insulin glargine (LANTUS) SQ injection 2 144 (Given - Provider: Danica Castle, SALO) 0942 (Given - Provider: Luis Fernando giang RN)2100 (Due) 20 Units, Subcutaneous, Two times a day, First dose (after last modification) on Mon03/04/21 at 2100, Until Discontinued, 0.2 mL, Blood Glucose greater than or equal to 100 mg/dL - Do Not Hold If Blood Glucose LESS than 100 mg/dL, if patient changed to NPO, or if tube feedings stopped - Immediately notify provider before administration. lactulose oral solution (10 gm/15 mL) 30 mL 0743 (Give n - Provider: Citlali Church RN) 0826 (Given - Provider: Citlali Church RN) 0936 (Given - Provider: Luis Fernando Rodriguez, SALO) 30 mL, Oral, Daily, First dose on 06/13 at 0900, Until Discontinued, 30 mL, Post - Op, Hold if has had an adequate BM in last 24 hours polyethylene glycol (MIRALAX) packet 1 packet 0741 (Gi davian - Provider: Citlali Church RN) 0824 (Given - Provider: Citlali Church RN) 0935 (Given - Provider: Luis Fernando Rodriguez RN) 1 packet, Oral, Daily, First dose on Mon03/02/21 at 0900, Until Discontinued, Post - Op, Hold for loose stools. Dissolve in 8 ounces of water, juice, soda, coffee, tea Do NOT give if patient on thickene d liquids. Contact provider for alternative if needed. rosuvastatin (CRESTOR) tablet 10 mg 2228 (Given - Provider: Danica Castle RN) 2140 (Given - Provider: Danica Castle RN) 2099 (Due) 10 mg, Oral, Bedtime, First dose on Mon03/02/21 at 2100, Until D iscontinued senna-docusate sodium (SENOKOT-S;PERICOLACE) tablet 1 tablet 0854 (Given - Provider: Citlali Church RN)2228 (Given - Provider: Danica Castle RN) 08 (Given - Provider: Citlali Church, SALO)2140 (Given - Provider: Danica Castle RN) 09 (Given - Provider: Luis Fernando giang RN)2099 (Due) 1 tablet, Oral, Two times a day, First d ose on Mon03/01/21 at 2100, Until Discontinued, Post - Op sodium chloride 0.9% flush (adult) 10 mL 0816 (Given - Provider: Citlali Church RN)2229 (Given - Provider: Danica Castle RN) 829 (Given - Provider: Citlali Church, SALO)2141 (Given - Provider: Danica Castle RN) 09 (Given - Provider: Luis Fernando Rodriguez, SALO)2099 (Due) 10 mL, IV, Two times a day and prn, Firs t dose on Mon03/01/21 at 0900, Until Discontinued, 10 mL, Active Now, Flush PIV line as scheduled and as often as necessary before and after meds. Use a push / pa use technique when flushing to create turbulence. sodium chloride 0.9% flush (adult) 10 mL 0817 (Given - Provider: Citlali Church RN)2227 (Given - Provider: Danica Castle RN) 08 (Given - Provider: Citlali Church, SALO)2140 (Given - Provider: Danica Castle RN) 09 (Given - Provider: Luis Fernando Rodriguez RN)2099 (Due) 10 mL, IV, Two times a day and prn, Firs t dose on Mon03/01/21 at 0900, Until Discontinued, 10 mL, Continue through discharge, Flush PIV line as scheduled and as often as necessary before and after meds. Use a push / pause technique when flushing to create turbulence . tiZANidine (ZANAFLEX) tablet 2 mg 0855 (Given - Provid er: Citlali Church RN)1431 (Given - Provider: Citlali Church RN)2230 (Given - Provider: Danica Castle RN) 0827 (Given - Provider: Citlali paredes RN)1443 (Given - Provider: Citlali Church, SALO)2141 (Given - Provider: Danica Castle RN) 0936 (Given - Provider: Luis Fernando giang RN)1500 (Due)2100 (Due) 2 mg, Oral, Three times a day, 15 doses, First dose on Mon03/01/21 at 1500, Last dose on Mon03/06/21 at 0900, Post - Op vitamin D3 (cholecalciferol) tablet 25 mcg 0744 (Given - Provider: Citlali Church RN) 0826 (Given - Provider: Citlali Church RN) 0936 (Given - Provider: Luis Fernando Rodriguez RN) 25 mcg, Oral, DAILY, First dose on Mon03/02/21 at 0900, Until Di scontinued Medication Order 03/03/2021 03/04/2021 03/05/2021 carbohydrate 15 g(Linked Group 1) 15 g, Oral, PRN per parameter, Starting on Mon03/01/21 at 1541, Until Discontinued, low blood glucose, Give 15 grams of carbohydrate if blood glucose is less than 70 mg/dL, patient is responsive and able to take food or oral meds. Recheck bl ood glucose in 15 minutes. Repeat 1 time and call MD. If recheck is greater than 70 mg/dL and able to take food or oral meds, give 15 gram carbohydrate if meal o r snack due in more than an hour. Serve meal or snack if due in less than 1 hour. See hypoglycemia treatment on cardex. Sources of 15 grams carbohydrate: a. 4 oz of fruit juice (Do NOT give orange ju ice to dialysis patients due to risk of hyperkalemia) or b. 4 oz of soda pop (NOT diet) or c. 1 tablespoon of honey dextrose 50% IV solution 50 mL 50 mL (25 g), IV, PRN per parameter, Sta rting on Mon03/01/21 at 1541, Until Discontinued, low blood glucose, 50 mL, Give if blood glucose is less than 70 mg/dL, patient is unresponsive or NPO, and has IV access. Recheck blood glucose in 15 min utes and call MD. Repeat dose if recheck less than 70 mg/dL and call MD. If recheck is greater than 70 mg/dL and able to take food or oral meds, give 15 gram carb ohydrate if meal or snack due in more th an an hour. Serve meal or snack if due in less than 1 hour. See hypoglycemia treatment on cardex. fentaNYL 100 mcg/2 mL preservative free injection solution 50 mc g 50 mcg, IV, Every one hour prn, Starting on Mon03/01/21 at 1433, Until Discontinued, severe pain, 1 mL, Post - Op, If pain unrelieved by oxycodone For pain scale 7 or greater or pain not relieved by med ications for pain scale 4 to 6; may admi nister less potent prescribed medication based on patient request per the organization's medication management policy. glucagon for injection 1 mg vial 1 mg 1 mg, Intramuscular, PRN per parameter, Starting on Mon03/01/21 at 1541, Until Discontinued, low blood glucose, Give if blood glucose less than 70 mg/dL, patient is unresponsive or NPO, and has no IV acc ess. Establish IV access. Recheck blood glucose in 15 minutes and call MD. If recheck is greater than 70 mg/dL and able to take food or oral meds, give 15 gram carbohydrate if meal or snack due in mor e than an hour. Serve meals or snack if due in less than 1 hour. See hypoglycemia treatment on cardex. Reconstitute vial with 1 mL of sterile water for injection for reconstitution for a final concentr ation of 1 mg/mL. Shake vial gently. Us e immediately and discard unused portion. Reconstitute with 1 mL of sterile water for injection to yield 1 mg/mL. Shake vial gently. Use immediately and discard unused portion. glucose chewable tablet 16 g(Linked Group 1) 16 g (4 tablet), Oral, PRN per parameter , Starting on Mon03/01/21 at 1541, Until Discontinued, low blood glucose, Chew before swallowing. Give 15 gram of carbohydrate if blood glucose is less than 70 mg/ dL, patient is responsive and able to ta ke food or oral meds. Recheck blood glucose in 15 minutes. Repeat 15 gram carbohydrate if recheck is less than 70 mg/dL and call MD. If recheck is greater than 7 0 mg/dL and able to take food or oral me ds, give 15 gram carbohydrate if meal or snack due in more than an hour. Serve meal or snack if due in less than 1 hour. See hypoglycemia treatment on cardex. S ources of 15 grams carbohydrate: a. 4 o z of fruit juice (Do NOT give orange juice to dialysis patients due to risk of hyperkalemia) or b. 4 oz of soda pop (NOT diet) or c. 1 tablespoon of honey nalOXone (NARCAN) injection solution (vial) 0.2 mg 0.2 mg, Injection, Every two minutes prn , Starting on Mon03/01/21 at 1433, Until Discontinued, other (Specify), opioid induced respiratory depression - PARTIAL reversal, 0.5 mL, Post - Op, PARTIAL REVERS AL/RESPIRATORY DEPRESSION If respiratory rate less than 8/minute - call rapid response and administer (until respiratory rate increases to 10/minute). Give IV (preferred), IM or SUBQ nalOXone (NARCAN) injection solution (vial) 0.4 mg 0.4 mg, Injection, Every two minutes prn , Starting on Mon03/01/21 at 1433, Until Discontinued, other (Specify), opioid induced respiratory arrest - FULL reversal, 1 mL, Post - Op, FULL REVERSAL/RESPIRATO RY ARREST If patient is not breathing - call CODE BLUE and administer. Give IV (preferred), IM or SUBQ ondansetron (ZOFRAN) injection solution 4 mg 4 mg, IV, Every four hours prn, Starting on Mon03/01/21 at 1433, Until Discontinued, nausea, vomiting, 2 mL, Post - Op, Use FIRST. If ineffective after 15 minutes use haloperidol. If preference is to fur ther dilute for IV administration: First draw up patient-specific dose, then dilute to 10 mL with 0.9% sodium chloride. oxyCODONE (OXY-IR) tablet 5-10 mg 0853 (Given - Provid er: Citlali Church, SALO)2228 (Given - Provider: Danica Castle, RN)2329 (Duplicate Entry - Provider: Danica Castle RN - Comment: med scanned an given) 2143 (Given - Provider: Danica Castle, RN) 5-10 mg, Oral, Every four hours prn, Sta rting on Mon03/01/21 at 1433, Until Discontinued, moderate pain, severe pain, Post - Op, For patients with MODERATE pain rating of 4-6, give oxyCODONE 5 mg every 4 hours PRN. For patients with SEVERE pa in rating of 7 or greater, give oxyCODONE 10 mg every 4 hours PRN. May administer less potent prescribed medication based on patient request per the organization's medication management policy. Order Group 1: glucose chewable tablet 16 gJump to med 16 g (4 tablet), Oral, PRN per parameter , Starting on Mon03/01/21 at 1541, Until Discontinued, low blood glucose
Chew before swallowing. Give 15 gram of carbohydrate if blood glucose is less than 70 mg/dL, patient is responsi ve and able to take food or oral meds. Recheck blood glucose in 15 minutes. Repeat 15 gram carbohydrate if recheck is less than 70 mg/dL and call MD. &am p;nbsp;If recheck is greater than 70 mg/ dL and able to take food or oral meds, give 15 gram carbohydrate if meal or snack due in more than an hour. Serve meal or snack if due in less than 1 hour.&nb sp; See hypoglycemia treatment on c ardex. Sources of 15 grams carbohydrate: a. 4 oz of fruit juice (Do NOT give orange juice to dialysis patients due to risk of hyp erkalemia) or b. 4 oz of soda pop (NOT diet) or c. 1 tablespoon of honey
Or carbohydrate 15 gJump to med 15 g, Oral, PRN per parameter, Starting on Mon03/01/21 at 1541, Until Discontinued, low blood glucose
Give 15 grams of carbohydrate if blood glucose is less than 70 mg/dL, patient is responsive and able to take food or oral meds. &nbs p; Recheck blood glucose in 15 minutes. Repeat 1 time and call MD. If recheck is greater than 70 mg/dL and able to take food or or al meds, give 15 gram carbohydrate if me al or snack due in more than an hour. Serve meal or snack if due in less than 1 hour. See hypoglycemia treatment on cardex. Sources of 15 grams carbohydrate: a. 4 oz of fruit juice (Do NOT give orange juice to dialysis patients due to risk of hyperkalemia) or b. 4 oz of soda pop (NOT diet) or c. 1 tablespoon of honey
documented in this encounter
[2021-03-08] MEDS: tiZANidine 4 MG Tab PO PRN (14:41)
[2021-03-08] MEDS: Rosuvastatin 10 MG Tab PO SCH (20:00)
[2021-03-09] MEDS: Ibuprofen 200 MG Tab PO SCH ×4 (01:44→20:21)
[2021-03-09] MEDS: Acetaminophen 325 MG Tab PO SCH ×4 (01:44→20:21)
[2021-03-09] MEDS: metFORMIN 1,000 MG Tab PO SCH ×2 (07:57→18:02)
[2021-03-09] MEDS: Aspirin 81 MG Tab.Chew PO SCH (08:02)
[2021-03-09] MEDS: Citalopram 20 MG Tab PO SCH (08:03)
[2021-03-09] MEDS: Losartan 25 MG Tab PO SCH (08:04)
[2021-03-09] MEDS: Cholecalciferol (Vitamin D3) 25 MCG Tab PO SCH (08:04)
[2021-03-09] MEDS: Cyanocobalamin (Vitamin B12) 1,000 MCG Tab PO SCH (08:05)
[2021-03-09] MEDS: Insulin Glargine,Human Rec. Analog 100 Units/ML 3 ML Pen SUBCUT SCH ×2 (09:22→20:23)
[2021-03-09] MEDS: tiZANidine 4 MG Tab PO PRN (13:01)
[2021-03-09] MEDS: Rosuvastatin 10 MG Tab PO SCH (20:21)
[2021-03-10] MEDS: Ibuprofen 200 MG Tab PO SCH ×4 (03:30→20:33)
[2021-03-10] MEDS: Acetaminophen 325 MG Tab PO SCH ×4 (03:30→20:33)
[2021-03-10] MEDS: metFORMIN 1,000 MG Tab PO SCH ×2 (08:40→17:53)
[2021-03-10] MEDS: Aspirin 81 MG Tab.Chew PO SCH (08:49)
[2021-03-10] MEDS: Citalopram 20 MG Tab PO SCH (08:50)
[2021-03-10] MEDS: Losartan 25 MG Tab PO SCH (08:50)
[2021-03-10] MEDS: Cyanocobalamin (Vitamin B12) 1,000 MCG Tab PO SCH (08:52)
[2021-03-10] MEDS: Cholecalciferol (Vitamin D3) 25 MCG Tab PO SCH (08:52)
[2021-03-10] MEDS ORDERED: Insulin Glargine,Human Rec. Analog 100 Units/ML 3 ML Pen SUBCUT ONE (08:58)
[2021-03-10] MEDS: Insulin Glargine,Human Rec. Analog 100 Units/ML 3 ML Pen SUBCUT SCH ×3 (09:09→20:36)
[2021-03-10] MEDS: Rosuvastatin 10 MG Tab PO SCH (20:33)
[2021-03-11] MEDS: Ibuprofen 200 MG Tab PO SCH ×4 (01:16→21:00)
[2021-03-11] MEDS: Acetaminophen 325 MG Tab PO SCH ×4 (01:16→21:00)
[2021-03-11] MEDS: metFORMIN 1,000 MG Tab PO SCH ×2 (08:07→17:35)
[2021-03-11] MEDS: Aspirin 81 MG Tab.Chew PO SCH (08:09)
[2021-03-11] MEDS: Citalopram 20 MG Tab PO SCH (08:09)
[2021-03-11] MEDS: Cyanocobalamin (Vitamin B12) 1,000 MCG Tab PO SCH (08:10)
[2021-03-11] MEDS: Cholecalciferol (Vitamin D3) 25 MCG Tab PO SCH (08:10)
[2021-03-11] MEDS: Losartan 25 MG Tab PO SCH (08:13)
[2021-03-11] MEDS: Insulin Glargine,Human Rec. Analog 100 Units/ML 3 ML Pen SUBCUT SCH ×2 (08:17→21:31)
[2021-03-11] MEDS: Rosuvastatin 10 MG Tab PO SCH (21:25)
[2021-03-12] MEDS: Ibuprofen 200 MG Tab PO SCH ×4 (02:04→19:53)
[2021-03-12] MEDS: Acetaminophen 325 MG Tab PO SCH ×4 (02:05→19:53)
--- NOTE | 2021-03-12 08:38 | PCM.PN ---
- General Info Date of Service: 03/12/21 Subjective Update: Akilah is doing well. States food is good just not much of an appetite. BS have been good in the 143 today, she was 241 in evening yesterday. She is not having pain in her back just from the knee down on her left leg which she had prior to her back surgery. She does not want to use Gabapentin but is open to trying Lidocaine patch at bedtime. She states nighttime when she is trying to sleep is when it is the worst, tolerable during the day. Having regular BM. Urinating well. - Patient Data Vitals - Most Recent: Last Vital Signs Temp 96.8 F L 03/11/21 21:00 Pulse 89 03/11/21 08:00 Resp 16 03/11/21 08:00 BP 115/55 L 03/11/21 08:13 Pulse Ox 94 L 03/11/21 13:00 Orthostatic Blood Pressure [ 133/69 Sitting] Orthostatic Blood Pressure [ 122/61 Standing] Weight - Most Recent: 181 lb 6.4 oz Med Orders - Current: Current Medications Acetaminophen (Acetaminophen 325 Mg Tab) 650 mg PO Q6H [facility] Last Admin: 03/12/21 02:05 Dose: 650 mg Documented by: Aspirin (Aspirin 81 Mg Tab.Chew) 81 mg PO DAILY [facility] Last Admin: 03/11/21 08:09 Dose: 81 mg Documented by: Cholecalciferol (Cholecalciferol (Vitamin D3) 25 Mcg Tab) 25 mcg PO DAILY [facility] Last Admin: 03/11/21 08:10 Dose: 25 mcg Documented by: Citalopram Hydrobromide (Citalopram 20 Mg Tab) 40 mg PO DAILY [facility] Last Admin: 03/11/21 08:09 Dose: 40 mg Documented by: Cyanocobalamin (Cyanocobalamin (Vitamin B12) 1,000 Mcg Tab) 1,000 mcg PO DAILY [facility] Last Admin: 03/11/21 08:10 Dose: 1,000 mcg Documented by: Dextrose/Water (50% Dextrose In Water 50 Ml Syringe) 50 ml IVPUSH ASDIRECTED PRN PRN Reason: Hypoglycemia Docusate Sodium (Docusate Sodium 100 Mg Cap) 100 mg PO BID PRN PRN Reason: Constipation Glucagon (Glucagon,Human Recombinant 1 Mg Vial) 1 mg IM ASDIRECTED PRN PRN Reason: Hypoglycemia Ibuprofen (Ibuprofen 200 Mg Tab) 200 mg PO Q6H [facility] Last Admin: 03/12/21 02:04 Dose: 200 mg Documented by: Insulin Glargine (Insulin Glargine,Human Rec. Analog 100 Units/Ml 3 Ml Pen) 30 units SUBCUT BEDTIME [facility] Last Admin: 03/11/21 21:31 Dose: 30 units Documented by: Insulin Glargine (Insulin Glargine,Human Rec. Analog 100 Units/Ml 3 Ml Pen) 32 units SUBCUT DAILY [facility] Lidocaine (Lidocaine 4% 1 Each Patch) 2 each TOP BEDTIME [facility] Losartan Potassium (Losartan 25 Mg Tab) 25 mg PO DAILY [facility] Last Admin: 03/11/21 08:13 Dose: 25 mg Documented by: Metformin HCl (Metformin 1,000 Mg Tab) 1,000 mg PO BIDMEALS [facility] Last Admin: 03/11/21 17:35 Dose: 1,000 mg Documented by: Oxycodone HCl (Oxycodone 5 Mg Tab) 5 mg PO Q4H PRN PRN Reason: moderate pain Polyethylene Glycol (Polyethylene Glycol 3350 Powder 17 Gm Packet) 17 gm PO DAILY PRN PRN Reason: Constipation Rosuvastatin Calcium (Rosuvastatin 10 Mg Tab) 10 mg PO BEDTIME [facility] Last Admin: 03/11/21 21:25 Dose: 10 mg Documented by: Tizanidine HCl (Tizanidine 4 Mg Tab) 2 mg PO TID PRN PRN Reason: MUSCLE SPASMS Last Admin: 03/09/21 13:01 Dose: 2 mg Documented by: Discontinued Medications Docusate Sodium (Docusate Sodium 100 Mg Cap) 100 mg PO BID [facility] Last Admin: 03/06/21 09:08 Dose: 100 mg Documented by: Insulin Glargine (Insulin Glargine,Human Rec. Analog 100 Units/Ml 3 Ml Pen) 30 units SUBCUT BID [facility] Last Admin: 03/08/21 20:03 Dose: 30 unit Documented by: Insulin Glargine (Insulin Glargine,Human Rec. Analog 100 Units/Ml 3 Ml Pen) 33 units SUBCUT DAILY [facility] Last Admin: 03/10/21 15:11 Dose: Not Given Documented by: Insulin Glargine (Insulin Glargine,Human Rec. Analog 100 Units/Ml 3 Ml Pen) 31 units SUBCUT DAILY [facility] Last Admin: 03/11/21 08:17 Dose: 31 unit Documented by: Polyethylene Glycol (Polyethylene Glycol 3350 Powder 17 Gm Packet) 17 gm PO DAILY [facility] Last Admin: 03/06/21 09:10 Dose: 17 gm Documented by: - Exam General: Alert, Oriented, Cooperative, No Acute Distress Lungs: Clear to Auscultation, Normal Respiratory Effort Cardiovascular: Regular Rate, Regular Rhythm GI/Abdominal Exam: Normal Bowel Sounds, Soft, Non-Tender, No Distention Extremities: No Pedal Edema, Normal Capillary Refill Peripheral Pulses: 2+: Radial (L), Radial (R) Sepsis Event Note - Evaluation Sepsis Screening Result: No Definite Risk - Focused Exam Vital Signs: Vital Signs Temp 03/11/21 21:00 96.8 F L - Problem List & Annotations (1) S/P laminectomy SNOMED Code(s): 158200687, 746223017, 937097979 Code(s): Z98.890 - OTHER SPECIFIED POSTPROCEDURAL STATES Status: Acute Current Visit: Yes Onset Date: ~03/01/21 (2) Left lumbosacral radiculopathy SNOMED Code(s): 753793314 Code(s): M54.17 - RADICULOPATHY, LUMBOSACRAL REGION Status: Acute Current Visit: Yes Annotation/Comment:: Start Lidocaine 4% patch to left knee & left calf at bedtime, on 12 hours and then remove (3) Diabetes SNOMED Code(s): 95457488 Code(s): E11.9 - TYPE 2 DIABETES MELLITUS WITHOUT COMPLICATIONS Status: Chronic Current Visit: Yes Qualifiers: Diabetes mellitus penitentiary insulin use: with oysterman use (4) Hypertension SNOMED Code(s): 54258319 Code(s): I10 - ESSENTIAL (PRIMARY) HYPERTENSION Status: Chronic Current Visit: Yes (5) Hypercholesteremia SNOMED Code(s): 65634154 Code(s): E78.00 - PURE HYPERCHOLESTEROLEMIA, UNSPECIFIED Status: Chronic Current Visit: Yes - Problem List Review Problem List Initiated/Reviewed/Updated: Yes - My Orders Last 24 Hours: My Active Orders 03/12/21 09:00 Insulin Glarg,Human.Rec.Analog [LantUS Solostar] 32 units SUBCUT DAILY 03/12/21 21:00 Lidocaine 4% [Aspercreme 4%] 2 each TOP BEDTIME - Plan Plan:: 1. S/p laminectomy: No bending, twisting, or lifting more than 15 lbs. Tylenol 650 mg po q6h and Ibuprofen 200 mg q6h scheduled. Lidocaine 4% patch on at bedtime for 12 hours then remove. She has not used the Oxycodone since her admission so will discontinue. Continue PT/OT. 2. DM: Lantus 32 units am and 30 units pm with Metformin 1000 mg bid. Glucose checks qidac&hs. 3. DVT prophylaxis: Ambulate with therapy. Aspirin 81 mg daily and TEDS hose BLE. 4. Discharge planning: once meets therapy goals, plan to discharge home with her .
[2021-03-12] MEDS: metFORMIN 1,000 MG Tab PO SCH ×2 (09:00→17:27)
[2021-03-12] MEDS: Citalopram 20 MG Tab PO SCH (09:02)
[2021-03-12] MEDS: Cyanocobalamin (Vitamin B12) 1,000 MCG Tab PO SCH (09:03)
[2021-03-12] MEDS: Aspirin 81 MG Tab.Chew PO SCH (09:03)
[2021-03-12] MEDS: Cholecalciferol (Vitamin D3) 25 MCG Tab PO SCH (09:04)
[2021-03-12] MEDS: Losartan 25 MG Tab PO SCH (09:04)
[2021-03-12] MEDS: Insulin Glargine,Human Rec. Analog 100 Units/ML 3 ML Pen SUBCUT SCH ×2 (09:05→20:41)
[2021-03-12] MEDS: Lidocaine 4% 1 each Patch TOP SCH (20:37)
[2021-03-12] MEDS: Rosuvastatin 10 MG Tab PO SCH (20:37)
[2021-03-12] MEDS: tiZANidine 4 MG Tab PO PRN (22:34)
[2021-03-13] MEDS: Acetaminophen 325 MG Tab PO SCH ×4 (02:57→21:08)
[2021-03-13] MEDS: Ibuprofen 200 MG Tab PO SCH ×4 (02:57→21:07)
[2021-03-13] MEDS: metFORMIN 1,000 MG Tab PO SCH ×2 (09:00→17:47)
[2021-03-13] MEDS: Citalopram 20 MG Tab PO SCH (09:10)
[2021-03-13] MEDS: Aspirin 81 MG Tab.Chew PO SCH (09:10)
[2021-03-13] MEDS: Cyanocobalamin (Vitamin B12) 1,000 MCG Tab PO SCH (09:11)
[2021-03-13] MEDS: Cholecalciferol (Vitamin D3) 25 MCG Tab PO SCH (09:12)
[2021-03-13] MEDS: Losartan 25 MG Tab PO SCH (09:12)
[2021-03-13] MEDS: Insulin Glargine,Human Rec. Analog 100 Units/ML 3 ML Pen SUBCUT SCH ×2 (09:13→21:10)
[2021-03-13] MEDS: Lidocaine 4% 1 each Patch TOP SCH (21:09)
[2021-03-13] MEDS: Rosuvastatin 10 MG Tab PO SCH (21:10)
[2021-03-14] MEDS: Ibuprofen 200 MG Tab PO SCH ×4 (01:34→20:49)
[2021-03-14] MEDS: Acetaminophen 325 MG Tab PO SCH ×4 (01:34→20:49)
[2021-03-14] MEDS: Aspirin 81 MG Tab.Chew PO SCH (08:06)
[2021-03-14] MEDS: metFORMIN 1,000 MG Tab PO SCH ×2 (08:06→17:12)
[2021-03-14] MEDS: Cholecalciferol (Vitamin D3) 25 MCG Tab PO SCH (08:07)
[2021-03-14] MEDS: Losartan 25 MG Tab PO SCH (08:07)
[2021-03-14] MEDS: Citalopram 20 MG Tab PO SCH (08:08)
[2021-03-14] MEDS: Cyanocobalamin (Vitamin B12) 1,000 MCG Tab PO SCH (08:08)
[2021-03-14] MEDS: Insulin Glargine,Human Rec. Analog 100 Units/ML 3 ML Pen SUBCUT SCH ×2 (09:29→20:42)
[2021-03-14] MEDS ORDERED: Insulin Glargine,Human Rec. Analog 100 Units/ML 3 ML Pen SUBCUT ONE (20:44)
[2021-03-14] MEDS: Lidocaine 4% 1 each Patch TOP SCH (20:50)
[2021-03-14] MEDS: Rosuvastatin 10 MG Tab PO SCH (20:51)
[2021-03-15] MEDS: Ibuprofen 200 MG Tab PO SCH ×2 (02:33→08:47)
[2021-03-15] MEDS: Acetaminophen 325 MG Tab PO SCH ×2 (02:34→08:51)
[2021-03-15] MEDS: metFORMIN 1,000 MG Tab PO SCH (08:53)
[2021-03-15] MEDS: Losartan 25 MG Tab PO SCH (08:53)
[2021-03-15] MEDS: Cholecalciferol (Vitamin D3) 25 MCG Tab PO SCH (08:54)
[2021-03-15] MEDS: Aspirin 81 MG Tab.Chew PO SCH (08:54)
[2021-03-15] MEDS: Cyanocobalamin (Vitamin B12) 1,000 MCG Tab PO SCH (08:55)
[2021-03-15] MEDS: Citalopram 20 MG Tab PO SCH (08:55)
[2021-03-15] MEDS: Insulin Glargine,Human Rec. Analog 100 Units/ML 3 ML Pen SUBCUT SCH (08:59)
--- NOTE | 2021-03-15 09:28 | PCM.DCSUM1 ---
Discharge Summary - Hospital Course HPI Initial Comments: Akilah underwent Laminectomy on Mar 01, she is POD #4 today. Her hemoglobin was 9.3, had minimal blood loss. Electrolytes were normal per Neurosurgery. She was started on Gabapentin 100 mg tid on 03/01 but has not really helped with pain. 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 She rates pain as 2/10, prior to surgery was 7-8/10. She denies any fevers, chills, shortness of breath, nausea, vomiting or abdominal pain. She has been voiding and had urinary catheter for 24 hours after surgery then was pulled. She has been passing gas but has not had BM since 02/26. She states gets UTI sometimes but denies any dysuria, frequency or hematuria currently. Neurosurgery pulled drain this morning and had minimal output from it, her surgical site was closed by Dermabond and drain site left open to close by secondary intention. We are to notify them if she has persistent large amounts of drainage from drain site. She is due to see Neurosurgery in 6 weeks. Her restrictions are: no bending, twisting and lifting more than 15 lbs. She does not require any specific DVT prophylaxis per neurosurgery. She eats a regular diet at home and is on Lantus 30 units bid and Metformin bid, checks her sugars tid. Diagnosis: Stroke: No - Discharge Data Discharge Date: 03/15/21 (outpatient PT) Discharge Disposition: Home, Self-Care 01 Condition: Good - Referral to Home Health Primary Care Physician: CECILIA Munoz - Discharge Diagnosis/Problem(s) (1) S/P laminectomy SNOMED Code(s): 164204947, 761107957, 088908001 ICD Code: Z98.890 - OTHER SPECIFIED POSTPROCEDURAL STATES Status: Acute Current Visit: Yes Onset Date: ~03/01/21 (2) Left lumbosacral radiculopathy SNOMED Code(s): 353326699 ICD Code: M54.17 - RADICULOPATHY, LUMBOSACRAL REGION Status: Acute Current Visit: Yes Problem Details: Start Lidocaine 4% patch to left knee & left calf at bedtime, on 12 hours and then remove (3) Diabetes SNOMED Code(s): 38753204 ICD Code: E11.9 - TYPE 2 DIABETES MELLITUS WITHOUT COMPLICATIONS Status: Chronic Current Visit: Yes Qualifiers: Diabetes mellitus 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 OT Reason for Consult: ADL's This query below is only for informational purposes and is not editable. Admission Diagnosis/Problem: Rehabilitation therapy PT Evaluation and Treatment [CONS] Routine Please Evaluate and Treat. PT Reason for Consult: Strengthening This query below is only for informational purposes and is not editable. Admission Diagnosis/Problem: Rehabilitation therapy Hospital Course: Akilah did not want Gabapentin and Oxycodone that she was discharged from [place] on so started Tylenol 500 mg q6h with Ibuprofen 200 mg q6h, this controlled her back pain, progressed with therapy well. She had not had BM prior to discharge from [place] but had a large one Monday evening of admission. Her bowel movements have been regular since then. She was having some trouble sleeping due to nerve pain in left leg from knee down, ordered Lidocaine 4% patches at bedtime, Akilah stated no change with pain but stated it was tolerable. She was on a regular diet which she does at home, adjusted her Lantus 31-32 units in am and 30 units in pm, She had well controlled blood sugars in am but elevated in afternoons but did improved toward end of her stay, 03/14: 81, 216, 246, 194. She went on day pass with her yesterday and wants to go home. - Patient Instructions Diet: Usual Diet as Tolerated Activity: As Tolerated Activity, Other: No lifting over 15 pounds, no bending, or twisting Driving: Do Not Drive Showering/Bathing: May Shower Notify Provider of: Fever, Increased Pain, Drainage, Nausea and/or Vomiting Other/Special Instructions: Follow up with outpatient PT for continuing therapy. Follow up with neurosurgery as previously scheduled in 4 weeks. Follow up with Bimal Fuller PA-C at [facility] for your regular diabetic recheck. - Discharge Plan *PRESCRIPTION DRUG MONITORING PROGRAM REVIEWED*: Not Applicable *COPY OF PRESCRIPTION DRUG MONITORING REPORT IN PATIENT RODOLFO: Not Applicable Home Medications: Home Meds Acetaminophen [Tylenol] 650 mg PO Q6H 03/05/21 [History] Cholecalciferol (Vitamin D3) [Vitamin D3] 25 mcg PO DAILY 03/05/21 [History] Citalopram Hydrobromide [Celexa] 40 mg PO DAILY 03/05/21 [History] Cyanocobalamin (Vitamin B-12) [Vitamin B-12] 1,000 mcg PO DAILY 03/05/21 [History] Docusate Sodium 100 mg PO BID 03/05/21 [History] Insulin Glarg,Human.Rec.Analog [Lantus Solostar] 30 units SUBCUT BID 03/05/21 [History] Losartan [Cozaar] 25 mg PO DAILY 03/05/21 [History] Rosuvastatin [Crestor] 10 mg PO BEDTIME 03/05/21 [History] metFORMIN HCl [Metformin HCl] 1,000 mg PO BIDMEALS 03/05/21 [History] Aspirin 81 mg PO DAILY tab.chew 03/15/21 [Rx] Ibuprofen [Motrin] 200 mg PO Q6H tablet 03/15/21 [Rx] polyethylene glycoL 3350 [MiraLAX] 17 gm PO DAILY PRN #1 bottle 03/15/21 [Rx] Oxygen Therapy Mode: Room Air Patient Handouts: Lumbosacral Radiculopathy - Discharge Summary/Plan Comment DC Time >30 min.: No Total # of Minutes for Discharge Time: 20 min - General Info Date of Service: 03/15/21 Subjective Update: Akilah did well out on pass yesterday would like to go home with outpatient PT. States pain is controlled except in her leg. Lidocaine patches have not helped but does not want to do Gabapentin or anything that can be addictive. She states the pain is tolerable. Functional Status: Reports: Pain Controlled, Tolerating Diet, Ambulating, Urinating. Denies: New Symptoms - Patient Data Vitals - Most Recent: Last Vital Signs Temp 97.2 F 03/14/21 20:45 Pulse 93 03/14/21 20:45 Resp 18 03/14/21 20:45 BP 171/70 H 03/15/21 08:53 Pulse Ox 97 03/14/21 20:45 Orthostatic Blood Pressure [ 133/69 Sitting] Orthostatic Blood Pressure [ 122/61 Standing] Weight - Most Recent: 179 lb Lab Results - Last 24 hrs: Laboratory Results - last 24 hr 03/14/21 03/14/21 03/14/21 Range/Units 11:41 17:10 20:35 POC Glucose 216 H D 246 H 194 H (80-116) mg/dL Med Orders - Current: Current Medications Acetaminophen (Acetaminophen 325 Mg Tab) 650 mg PO Q6H [facility] Last Admin: 03/15/21 08:51 Dose: 650 mg Documented by: Aspirin (Aspirin 81 Mg Tab.Chew) 81 mg PO DAILY [facility] Last Admin: 03/15/21 08:54 Dose: 81 mg Documented by: Cholecalciferol (Cholecalciferol (Vitamin D3) 25 Mcg Tab) 25 mcg PO DAILY [facility] Last Admin: 03/15/21 08:54 Dose: 25 mcg Documented by: Citalopram Hydrobromide (Citalopram 20 Mg Tab) 40 mg PO DAILY [facility] Last Admin: 03/15/21 08:55 Dose: 40 mg Documented by: Cyanocobalamin (Cyanocobalamin (Vitamin B12) 1,000 Mcg Tab) 1,000 mcg PO DAILY [facility] Last Admin: 03/15/21 08:55 Dose: 1,000 mcg Documented by: Dextrose/Water (50% Dextrose In Water 50 Ml Syringe) 50 ml IVPUSH ASDIRECTED PRN PRN Reason: Hypoglycemia Docusate Sodium (Docusate Sodium 100 Mg Cap) 100 mg PO BID PRN PRN Reason: Constipation Glucagon (Glucagon,Human Recombinant 1 Mg Vial) 1 mg IM ASDIRECTED PRN PRN Reason: Hypoglycemia Ibuprofen (Ibuprofen 200 Mg Tab) 200 mg PO Q6H [facility] Last Admin: 03/15/21 08:47 Dose: 200 mg Documented by: Insulin Glargine (Insulin Glargine,Human Rec. Analog 100 Units/Ml 3 Ml Pen) 30 units SUBCUT BEDTIME [facility] Last Admin: 03/14/21 20:42 Dose: 30 units Documented by: Insulin Glargine (Insulin Glargine,Human Rec. Analog 100 Units/Ml 3 Ml Pen) 32 units SUBCUT DAILY [facility] Last Admin: 03/15/21 08:59 Dose: 32 units Documented by: Lidocaine (Lidocaine 4% 1 Each Patch) 2 each TOP BEDTIME [facility] Last Admin: 03/14/21 20:50 Dose: 2 each Documented by: Losartan Potassium (Losartan 25 Mg Tab) 25 mg PO DAILY [facility] Last Admin: 03/15/21 08:53 Dose: 25 mg Documented by: Metformin HCl (Metformin 1,000 Mg Tab) 1,000 mg PO BIDMEALS [facility] Last Admin: 03/15/21 08:53 Dose: 1,000 mg Documented by: Miscellaneous Information (Remove Lidocaine Patch) 2 ea TRDERM Q24H [facility] Last Admin: 03/14/21 08:08 Dose: 2 ea Documented by: Polyethylene Glycol (Polyethylene Glycol 3350 Powder 17 Gm Packet) 17 gm PO DAILY PRN PRN Reason: Constipation Rosuvastatin Calcium (Rosuvastatin 10 Mg Tab) 10 mg PO BEDTIME [facility] Last Admin: 03/14/21 20:51 Dose: 10 mg Documented by: Tizanidine HCl (Tizanidine 4 Mg Tab) 2 mg PO TID PRN PRN Reason: MUSCLE SPASMS Last Admin: 03/12/21 22:34 Dose: 2 mg Documented by: Discontinued Medications Docusate Sodium (Docusate Sodium 100 Mg Cap) 100 mg PO BID [facility] Last Admin: 03/06/21 09:08 Dose: 100 mg Documented by: Insulin Glargine (Insulin Glargine,Human Rec. Analog 100 Units/Ml 3 Ml Pen) 30 units SUBCUT BID [facility] Last Admin: 03/08/21 20:03 Dose: 30 unit Documented by: Insulin Glargine (Insulin Glargine,Human Rec. Analog 100 Units/Ml 3 Ml Pen) 33 units SUBCUT DAILY [facility] Last Admin: 03/10/21 15:11 Dose: Not Given Documented by: Insulin Glargine (Insulin Glargine,Human Rec. Analog 100 Units/Ml 3 Ml Pen) 31 units SUBCUT DAILY [facility] Last Admin: 03/11/21 08:17 Dose: 31 unit Documented by: Oxycodone HCl (Oxycodone 5 Mg Tab) 5 mg PO Q4H PRN PRN Reason: moderate pain Polyethylene Glycol (Polyethylene Glycol 3350 Powder 17 Gm Packet) 17 gm PO DAILY [facility] Last Admin: 03/06/21 09:10 Dose: 17 gm Documented by: - Exam General: Reports: Alert, Oriented, Cooperative, No Acute Distress Lungs: Reports: Clear to Auscultation, Normal Respiratory Effort Cardiovascular: Reports: Regular Rate, Regular Rhythm GI/Abdominal Exam: Normal Bowel Sounds, Soft, Non-Tender, No Distention Extremities: No Pedal Edema, Normal Capillary Refill *Q Meaningful Use (DIS) - VTE *Q VTE Mechanical Contraindications *Q: At Risk for Falls
== END 2021-03-15 10:40 | disposition home or self-care (01) | DRG 862 ==
LOC: FB.MS 13:03
PROVIDERS: ADMIT Family Medicine; ATTEND Family Medicine
DX: Z47.89 Encounter for other orthopedic aftercare (principal); M54.17 Radiculopathy, lumbosacral region; E11.9 Type 2 diabetes mellitus without complications; Z66 Do not resuscitate; I10 Essential (primary) hypertension; E78.00 Pure hypercholesterolemia, unspecified; Z98.890 Other specified postprocedural states; Z79.4 Long term (current) use of insulin; Z79.82 Long term (current) use of aspirin; Z79.899 Other long term (current) drug therapy; Z88.8 Allergy status to other drugs, medicaments and biological substances; Z88.2 Allergy status to sulfonamides
CPT/HCPCS: 82947; 97110-GO; 97110-GP; 97116-GP; 97161-GP; 97165-GO; 97530-GO; 97530-GP; 97535-GO; A9270-GY; J1815-GY